=== PATIENT | female | born 1940 | race Caucasian/White ===

== ENCOUNTER 2023-08-13 16:36 | Emergency (ER) | payer MEDICARE, SELFPAY ==
[2023-08-13 16:37] VITALS: BP 160/90
[2023-08-13 16:51] VITALS: BMI 25.4
--- NOTE | 2023-08-13 16:53 | EDRN ---
Pt c/o palpitations, denies chest pain, was seen by her body fitter yesterday for same. Reports hx of palpitations.
--- NOTE | 2023-08-13 16:59 | ED.GENMED ---
History of Present Illness
General
Chief Complaint: Heart Rate Problem
Time Seen by Provider: 08/13/23 16:46
Travel History
Have you had any contact with someone who has COVID-19?: No
Do you have any symptoms of coronavirus? Fever > 100 degrees, chills, cough, shortness of breath, sore throat, loss of taste or smell, muscle aches, or headache?: No
History of Present Illness
History of Present Illness:
HPI: Saw Eileen yesterday and was given Rx for Amio. Intermittent palpitations for years. Says she had a 'normal' Holter early July. She doesn't think she has a formal dx of AFib. Amio not started b/c pharmacist was concerned she is also on
Propranolol. Onset of palpitations last night 6pm. Takes Eliquis 5mg bid for DVT hx. However missed Eliquis dose last night. In rapid AFib now w/ rates 130s to 160s.
EXAM:
GENERAL: Well appearing in no distress
HEENT: Moist oral mucosa
CARDIOVASCULAR: No murmurs, tachycardic with irregular rhythm, No chest wall tenderness
PULMONARY: No respiratory distress, breath sounds are clear and equal
ABDOMEN: Soft with no peritoneal signs, no tenderness
NEUROLOGIC: Excellent strength all extremities, no coordination deficits
PSYCHIATRIC: Appropriate mental status, normal insight and judgement
EXTREMITIES: Nontender, no edema, moves all extremities equally
SKIN: No rash, no lesions
ED COURSE:
5:20 PM: I initially evaluated patient
NUMBER AND COMPLEXITY OF PROBLEMS ADDRESSED AT THE ENCOUNTER
� Chronic conditions affecting care: Hyperlipidemia, diabetes, questionable atrial fibrillation, history of DVT
� Acute Exacerbation and/or Progression of Chronic Illness: This is a recurring problem
� Differential Diagnosis includes: A-fib/a flutter, SVT, electrolyte abnormality, doubt ACS
AMOUNT AND/OR COMPLEXITY OF DATA TO BE REVIEWED AND ANALYZED
� I performed an independent evaluation of and my interpretation is:
EKG: A-fib, ventricular rate of 135
CT:
X-rays:
Laboratory Studies: CBC unremarkable, troponin normal, TSH normal
Other:
� Review of other/old records: Patient had left TKA in 2020
� Clinical information was obtained by an independent historian: Spoke to the daughter at bedside
� Prescriptions/Medications Considered but not given:
� Further testing considered but not performed:
RISK OF COMPLICATIONS AND/OR MORBIDITY OR MORTALITY OF PATIENT MANAGEMENT
� Social determinants of health affecting care: Lives at home
� Discussion with other providers: I discussed with Dr. Stein who agrees it is not safe for electrocardioversion at this time as she missed a dose of Eliquis
� Escalation of care including admission/observation vs risk of discharge considered: The patient's heart rates ranged in the 130s to 160s. She was placed on Cardizem. Considered electrical cardioversion however the patient
missed a dose of Eliquis. I then suggested admission to the hospital to continue on the drip and monitor the heart rate and rhythm. It was also unclear if the patient truly has a diagnosis of A-fib to begin with. However, the patient adamantly
refuses to stay in the hospital wants to go home. After discussion with cardiology, we agreed to stop the Cardizem drip now and give her her dose of amiodarone that she should already be on. She will continue this along with propranolol.
Past History
Past History
ED Past Medical History: Arrthythmia; Negative Asthma, HTN, Hypercholesterolemia or NIDDM
ED Past Surgical History: Appendectomy, Gynecological (Hysterectomy) and Orthopedic
Social History
Tobacco: Non-smoker
Alcohol: None
Drug: None
Personal:
Living: alone
Employment: Employed
Phy Exam
Physical Exam
Physical Exam:
See HPI
Course
Orders/Labs/Results
Orders:
Orders
08/13/23 16:40
Electrocardiogram (*1) Urgent
Reason for Study: Palpitations
EKG- Treatment ONCE
08/13/23 16:59
Complete Blood Count/With Diff Urgent
Comprehensive Metabolic Panel Urgent
Prothrombin Time Urgent
TSH Reflex To Free T4 Urgent
Comment: ADD ON
Troponin I Urgent
08/13/23 17:00
Add On- LAB Urgent
Tests Added?: tsh reflex free t4
08/13/23 17:19
Diltiazem HCl [Cardizem] 10 mg IV NOW STA
08/13/23 17:30
Diltiazem 125 mg/125 ml Nss [Cardizem] 125 mg in 125 ml IV PER PROTOCOL
Initial dose in mg/hr, then titrate:: 10
Titrate to keep:: Heart rate 80-100 bpm
Titrate by mg/hr:: 5 mg/hr
Frequency of titrations (minutes):: 15
Maximum dose in mg/hr:: 15
08/13/23 18:24
Amiodarone [Pacerone] 200 mg PO NOW STA
Abnormal Lab Results
08/13/23
16:59
Absolute Monos (auto) 0.7 H 10^3/uL
(0.1-0.6)
Monocytes % 9.4 H %
(1.7-9.3)
BUN 18 H mg/dl
(7-17)
Creatinine 0.5 L mg/dL
(0.6-1.0)
Glucose 126 H mg/dl
(70-99)
08/13/23 16:59
08/13/23 16:59
Vital Signs
Initial and Last Documented VS:
Initial Vital Signs
Temp Pulse Resp BP Pulse Ox
98.2 F 150 20 160/90 96
08/13/23 16:37 08/13/23 16:37 08/13/23 16:37 08/13/23 16:37 08/13/23 16:37
Last Documented Vital Signs
Temp Pulse Resp BP Pulse Ox
98.2 F 107 23 124/77 96
08/13/23 16:37 08/13/23 18:15 08/13/23 18:15 08/13/23 18:15 08/13/23 16:37
*Critical Care Note
Total Time (30-74mins, 75-104mins- exclusive of procedures): 45 minutes
comment:
The patient's heart rate was as high as the 160s. She was emergently given Cardizem bolus and was placed on a drip for period of time. Her vital signs were very closely monitored. Had multiple discussions with cardiology emergently.
ED Attending Note
-
Portions of this chart may have been created with voice recognition software.� Occasional wrong word or��sound alike� substitutions may have occurred due to the inherent limitations of voice recognition software.
Discharge Plan
Departure
Patient Disposition: Home (Routine Discharge)
Date of Disposition: 08/13/23
Time of Disposition: 18:32
Patient with high blood pressure during this ER visit?: Yes
Discharge Problem:
Atrial fibrillation
Instructions: Atrial Fibrillation (DC)
Prescriptions:
No Action
propranolol 60 MG capsule,extended release 24 hr
60 mg PO DAILY
multivitamin with minerals [Hair,Skin and Nails] 1 EACH tablet
2 ea PO DAILY
famotidine 40 MG tablet
40 mg PO HS
levothyroxine 88 MCG tablet
88 mcg PO DAILY AT 0700
rosuvastatin 5 MG tablet
5 mg PO MOWEFR
cholecalciferol (vitamin D3) 1,000 UNITS tablet
1,000 units PO DAILY
metformin 500 MG tablet
500 mg PO Daily
oxycodone-acetaminophen 5 MG/325 MG tablet
1 tab PO Q6HPRN PRN (Reason: moderate-severe pain) Qty: 45 0RF
Rx Instructions:
1 tab for moderate pain, 1 1/2 tab for severe
dx total joint
ongoing therapy
ibuprofen [Advil Liqui-Gel] 200 MG capsule
2 - 4 tab PO PRN PRN (Reason: PAIN)
propranolol 10 MG tablet
1 - 2 mg PO PRN PRN (Reason: TACHYCARDIA)
magnesium [Magnacaps] 100 MG capsule
100 mg PO DAILY
gabapentin 300 MG capsule
300 mg PO HS
sodium chloride [Federica 128] 1 DROP drops
1 drp BOTH EYES HS
multivitamin with folic acid [Tab-A-Constantin] 1 TABLET tablet
1 tab PO DAILY
apixaban [Eliquis] 5 MG tablet
5 mg PO BID
vit C,J-Xl-ihwwh-lutein-zeaxan [PreserVision AREDS-2] 1 EACH capsule
1 ea PO DAILY
tyepndie-fmwsi-pfbuv-CF borate [Move Free Joint [facility]] 1 EACH tablet
1 ea PO DAILY
Activity Restrictions/Additional Instructions:
I spoke to one of Dr. Arellano's associates, Dr. Stein. Start Amiodarone as directed by Dr. Arellano - next dose in morning. We gave a one-time dose of Cardizem 10 mg and then briefly placed you on a drip. Your blood work came back normal including
cardiac blood work as well as thyroid testing. Return here if worse. Be sure to continue your Eliquis without missing any doses to help prevent a stroke.
Interventions
Interventions:
*Risk Screen - Suicide Last Done: 08/13/23 16:51
*General Assessment Last Done: 08/13/23 16:37
*Neglect/Abuse Screening Last Done: 08/13/23 16:51
*ED COVID-19 Vaccine History Last Done: 08/13/23 16:37
ED- Cardiac Assessment Last Done: 08/13/23 16:52
ED- Pulmonary Assessment Last Done: 08/13/23 16:52
[2023-08-13 17:11] LABS: % Basophils 1.1 % (0-2); % Eosinophils 1.6 % (0-6); % Immature Granulocytes 0.3 % (0-0.5); % Lymphocytes 29.5 % (20.5-51.1); % Monocytes 9.4 % (1.7-9.3); % Neutrophils 58.1 % (42.2-75.2); Absolute Basophils 0.1 10^3/uL (0-0.2); Absolute Eosinophils 0.1 10^3/uL (0-0.7); Absolute Lymphocytes 2.2 10^3/uL (1.2-3.4); Absolute Monocytes 0.7 10^3/uL (0.1-0.6); Absolute Neutrophils 4.4 10^3/uL (1.4-6.5); Hematocrit 42.2 % (37.0-47.0); Hemoglobin 14.9 g/dL (12.0-16.0); Mean Corp Hgb Conc. 35.3 g/dL (33.0-37.0); Mean Corpuscular Hgb 30.5 pg (27.0-31.0); Mean Corpuscular Volume 86.5 fL (81.0-99.0); Mean Platelet Volume 9.9 fL (7.4-10.4); Nucleated Red Blood Cells % 0 %; Platelet Count 285 10^3/uL (130-400); Red Blood Cell Count 4.88 10^6/uL (4.20-5.40); Red Cell Dist. Width 14.3 % (11.5-14.5); White Blood Cell Count 7.5 10^3/uL (4.8-10.8)
[2023-08-13 17:17] LABS: INR 0.99; PT 13.1 Sec (11.4-14.6)
[2023-08-13 17:23] VITALS: BP 137/93
[2023-08-13] MEDS: CARDIZEM 10 MG IV (17:23)
[2023-08-13 17:34] LABS: Troponin I < 0.012 ng/ml
[2023-08-13 17:47] LABS: ALT (SGPT) 25 U/L (0-35); AST (SGOT) 31 U/L (14-36); Alkaline Phosphatase 74 U/L (38-126); Blood Urea Nitrogen 18 mg/dl (7-17); Calcium 9.8 mg/dl (8.4-10.2); Carbon Dioxide 24 mmol/L (22-30); Chloride 100 mmol/L (98-107); Estimated Creatinine Clearance 74 ml/min; Glucose 126 mg/dl (70-99); Potassium 4.6 mmol/L (3.5-5.1); Sodium 135 mmol/L (135-145); Total Bilirubin 0.8 mg/dl (0.2-1.3); Total Protein 6.5 g/dl (6.3-8.2); eGFR > 60.00
[2023-08-13] MEDS: CARDIZEM 125 IV (17:57)
[2023-08-13 18:00] VITALS: BP 127/80
[2023-08-13 18:15] VITALS: BP 124/77
[2023-08-13 18:28] LABS: TSH Reflex To Free T4 2.02 uIU/ml (0.47-4.68)
[2023-08-13] MEDS: PACERONE 200 MG PO (18:28)
== END 2023-08-13 18:44 | disposition home or self-care (01) ==
LOC: EMR 16:36
PROVIDERS: EMERGENCY PHYSICIAN Emergency Medicine; FAMILY PHYSICIAN Internal Medicine
DX: I48.91 Unspecified atrial fibrillation (principal); R00.2 Palpitations
CPT/HCPCS: 99283; 96374; 96376; 80053; 84443; 84484; 85025; 85610; 93005

== ENCOUNTER 2023-08-16 15:46 | Emergency (ER) | payer MEDICARE, SELFPAY ==
[2023-08-16] VITALS (16 sets, daily range): BP systolic 100–149; BP diastolic 62–105
--- NOTE | 2023-08-16 16:42 | ED.GENMED ---
History of Present Illness
General
Chief Complaint: Heart Rate Problem
Source: patient, records and family
Exam Limitations: none
Time Seen by Provider: 08/16/23 16:28
Nursing documentation reviewed up to this point in time: agreed with
Travel History
Have you had any contact with someone who has COVID-19?: No
Do you have any symptoms of coronavirus? Fever > 100 degrees, chills, cough, shortness of breath, sore throat, loss of taste or smell, muscle aches, or headache?: No
History of Present Illness
History of Present Illness:
Patient is a 83-year-old female who presents to the emergency department complaining of her heart racing. Patient was seen here 3 days ago and had missed a dose of her Eliquis the day before and was found to be atrial flutter. At that time was
decided not to cardiovert her. Patient is taking amiodarone. Patient feels lightheaded and weak but denies chest pain or shortness of breath. Patient denies any GI or symptoms. Patient denies fever or chills, nasal congestion, sore throat or
cough. Patient denies any leg pain or swelling. Patient has been in atrial fibrillation and atrial flutter in the past.
Past History
Past History
ED Past Medical History: Arrthythmia; Negative Asthma, HTN, Hypercholesterolemia or NIDDM
ED Past Surgical History: Appendectomy, Gynecological (Hysterectomy) and Orthopedic
Social History
Tobacco: Non-smoker
Alcohol: None
Drug: None
Personal:
Living: alone
Employment: Employed
Review of Systems
Review of Systems
All Other Systems: ROS reviewed and negative except as documented in HPI and ROS
Constitutional: Reports fatigue; Denies fever or chills
EENT: Reports no symptoms
Respiratory: Reports no symptoms
Cardiac: Reports palpitations; Denies chest pain, diaphoresis or syncope
ABD/GI: Reports no symptoms
: Reports no symptoms
Musculoskeletal: Reports no symptoms
Skin: Reports no symptoms
Neurological: Reports no symptoms
Hematologic/Lymphatic: Reports no symptoms
Psychiatric: Reports no symptoms
Phy Exam
Physical Exam
Physical Exam:
Physical Exam
General: mild distress, alert and appropriate, well nourished, well hydrated
HENT: Normocephalic, supple with no lymphadenopathy, no thyromegaly
Eyes: Clear sclera, conjuctiva without injection
Heart: irregular irregular rhythm and tachycardic rate. No S3, S4. No murmur. No NVD
Lungs: No respiratory distress, no stridor, lung sounds clear and equal bilaterally
Abdomen: Soft, nontender, BS good
Neuro: Alert and oriented x 3, CN II - XII intact, no motor focality
Skin: no rash
Psychiatric: well kept. interactive and cooperative
Extremities: No edema, cyanosis, tenderness
Scores
Heart Failure Risk
Heart Failure Risk Score: Not Applicable
Heart Score for Chest Pain Patients
STEMI patient?: Not applicable
Withdrawal Assessment of Alcohol
Withdrawal Assessment Completed?: Not applicable
Course
Orders/Labs/Results
Orders:
Orders
08/16/23 15:52
EKG [Electrocardiogram (*1)] Stat
Reason for Study: Tachycardia
EKG- Treatment ONCE
Vital Signs
Initial and Last Documented VS:
Initial Vital Signs
Temp Pulse Resp BP Pulse Ox
97.9 F 128 20 147/90 98
08/16/23 15:48 08/16/23 15:48 08/16/23 15:48 08/16/23 15:48 08/16/23 15:48
Last Documented Vital Signs
Temp Pulse Resp BP Pulse Ox
97.8 F 62 25 124/67 96
08/16/23 18:00 08/16/23 18:41 08/16/23 18:41 08/16/23 18:41 02/04/24 18:41
Procedures
Cardioversion
Indication:: Afib
Performed by:: leticia
Synchronized?: Yes
Energy Used: Other (100)
Number of attempts: 1
Successful?: Yes
Complications: prolonged sedation
ASA Risk Score: Class II
Any reaction or bad outcome to prior sedation/anesthesia?: Pt has had a reaction (vomiting)
Sedation level to be attained: deep
Chart and allergies reviewed: Yes
Patient reassessed prior to sedation: Yes
Time out completed at (validating right patient & procedure): 17:15
History of difficult intubation: No
Airway free of obstruction: Yes
Patient has a gag reflex: Yes
Patient is able to open mouth: Yes
Patient has no dentures: Yes
Patient has no loose teeth: Yes
Medication administered by Provider during Moderate Sedation: IV Propofol (mg)
Total dose administered: 50
Time drug administered: 17:15
Start Time: 17:15
Stop Time: 17:30
*Radiology
Radiology exam reviewed: other (na)
*Pulse Oximetry
Patient hypoxic: no
*EKG
Interpreted by ED Provider?: Yes
EKG Intrepretation Date: 08/16/23
EKG Intrepretation Time: 21:42
Interpretation: abnormal
Comparison EKG: changes noted
Heart Rate: 113
Rate: tachycardiac
Rhythm: a-fib
[place]: normal axis
Interval: normal QT interval
QRS Pattern: poor R-wave progression
Ischemia: non-specific ST changes
*Video Game Designer Interpretation
Rate: tachycardiac
Interpretation: abnormal
Heart Rate: 130
Rhythm: a-fib
*Critical Care Note
Total Time (30-74mins, 75-104mins- exclusive of procedures): Not Applicable
Update Note
Update Note:
I reviewed the labs from 3 days ago and they were unremarkable. Patient underwent cardioversion successfully. Repeat EKG showed normal sinus rhythm at 60 and no acute changes.
ED Attending Note
-
Portions of this chart may have been created with voice recognition software.� Occasional wrong word or��sound alike� substitutions may have occurred due to the inherent limitations of voice recognition software.
Discharge Plan
Departure
Patient Disposition: Home (Routine Discharge)
Date of Disposition: 08/16/23
Time of Disposition: 17:59
Patient with high blood pressure during this ER visit?: Yes
Condition: Good
Discharge Problem:
Atrial fibrillation with rapid ventricular response, Encounter for cardioversion procedure
Instructions: Atrial Fibrillation (DC), Cardioversion (DC), MODERATE SEDATION ADULT, BLOOD PRESSURE
Prescriptions:
No Action
propranolol 60 MG capsule,extended release 24 hr
60 mg PO DAILY
multivitamin with minerals [Hair,Skin and Nails] 1 EACH tablet
2 ea PO DAILY
famotidine 40 MG tablet
40 mg PO HS
levothyroxine 88 MCG tablet
88 mcg PO DAILY AT 0700
rosuvastatin 5 MG tablet
5 mg PO MOWEFR
cholecalciferol (vitamin D3) 1,000 UNITS tablet
1,000 units PO DAILY
metformin 500 MG tablet
500 mg PO Daily
oxycodone-acetaminophen 5 MG/325 MG tablet
1 tab PO Q6HPRN PRN (Reason: moderate-severe pain) Qty: 45 0RF
Rx Instructions:
1 tab for moderate pain, 1 1/2 tab for severe
dx total joint
ongoing therapy
ibuprofen [Advil Liqui-Gel] 200 MG capsule
2 - 4 tab PO PRN PRN (Reason: PAIN)
propranolol 10 MG tablet
1 - 2 mg PO PRN PRN (Reason: TACHYCARDIA)
magnesium [Magnacaps] 100 MG capsule
100 mg PO DAILY
gabapentin 300 MG capsule
300 mg PO HS
sodium chloride [Federica 128] 1 DROP drops
1 drp BOTH EYES HS
multivitamin with folic acid [Tab-A-Constantin] 1 TABLET tablet
1 tab PO DAILY
apixaban [Eliquis] 5 MG tablet
5 mg PO BID
vit C,Z-Rs-zaxsi-lutein-zeaxan [PreserVision AREDS-2] 1 EACH capsule
1 ea PO DAILY
whpossha-wbqim-zuayv-CF borate [Move Free Joint [facility]] 1 EACH tablet
1 ea PO DAILY
Referrals:
NONE,* [Active] -
Activity Restrictions/Additional Instructions:
Follow-up with your satin finisher. Continue present medications and therapy.
Interventions
Interventions:
*Risk Screen - Suicide Last Done: 08/16/23 16:27
*General Assessment Last Done: 08/16/23 15:48
*Neglect/Abuse Screening Last Done: 08/16/23 16:27
ED- Fall Risk Assessment Last Done: 08/16/23 16:27
*ED COVID-19 Vaccine History Last Done: 08/16/23 15:48
*Nursing Disposition Last Done: 08/16/23 18:51
ED- Cardiac Assessment Last Done: 08/16/23 16:27
ED- Pulmonary Assessment Last Done: 08/16/23 16:27
Discharge Date and Time
Discharge Date/Time: 08/16/23 18:52
== END 2023-08-16 18:52 | disposition home or self-care (01) ==
LOC: EMR 15:46
PROVIDERS: EMERGENCY PHYSICIAN Emergency Medicine
DX: I48.91 Unspecified atrial fibrillation (principal); Z79.01 Long term (current) use of anticoagulants; Z90.49 Acquired absence of other specified parts of digestive tract; Z90.710 Acquired absence of both cervix and uterus
CPT/HCPCS: 99283; 92960; 93005

== ENCOUNTER → 2023-09-09 09:11 | Outpatient (REF) | payer MEDICARE, SELFPAY | LOC: DHCBS HW 09:11 | PROVIDERS: ATTENDING PHYSICIAN Nuclear Medicine Nuclear Cardiology; FAMILY PHYSICIAN Family Medicine | DX: I48.0 Paroxysmal atrial fibrillation (principal); R00.2 Palpitations | CPT/HCPCS: 93306 ==

== ENCOUNTER → 2024-08-04 10:05 | Outpatient (REF) | payer MEDICARE, SELFPAY | LOC: WDC 10:05 | PROVIDERS: ATTENDING PHYSICIAN Family Medicine | DX: N63.20 Unspecified lump in the left breast, unspecified quadrant (principal); N63.21 Unspecified lump in the left breast, upper outer quadrant | CPT/HCPCS: 76642; 77062; 77066 ==

== ENCOUNTER → 2024-09-19 08:12 | Outpatient (REF) | payer MEDICARE, SELFPAY ==
--- NOTE | 2024-09-19 13:25 | OID.BR.INTR ---
[facility] Navigator - Initial
- -
Date of Contact: 09/19/24
Met with patient. Patient given written information on navigator service available at [facility]. Will follow up as needed per protocol.
== END ==
LOC: WDC 08:12
PROVIDERS: ATTENDING PHYSICIAN Family Medicine
DX: N63.21 Unspecified lump in the left breast, upper outer quadrant (principal)
CPT/HCPCS: 88305; 19083; 88341; 88342; 88360; A4648

== ENCOUNTER → 2024-09-27 13:44 | Outpatient (REF) | payer MEDICARE, SELFPAY | LOC: WDC 13:44 | PROVIDERS: ATTENDING PHYSICIAN Surgery; FAMILY PHYSICIAN Family Medicine | DX: N63.32 Unspecified lump in axillary tail of the left breast (principal); R22.32 Localized swelling, mass and lump, left upper limb | CPT/HCPCS: 76642 ==

== ENCOUNTER 2024-10-18 18:30 | Inpatient (IN) | payer MEDICARE, SELFPAY ==
[2024-10-18 12:58] VITALS: BP 150/60
[2024-10-18 13:19] LABS: % Basophils 0.6 % (0-2); % Eosinophils 0.7 % (0-6); % Immature Granulocytes 0.5 % (0-0.5); % Lymphocytes 13.2 % (20.5-51.1); % Monocytes 10.6 % (1.7-9.3); % Neutrophils 74.4 % (42.2-75.2); Absolute Basophils 0.1 10^3/uL (0-0.2); Absolute Eosinophils 0.1 10^3/uL (0-0.7); Absolute Immature Granulocytes 0.1 10^3/uL (0-0.05); Absolute Lymphocytes 1.4 10^3/uL (1.2-3.4); Absolute Monocytes 1.1 10^3/uL (0.1-0.6); Absolute Neutrophils 7.7 10^3/uL (1.4-6.5); Hematocrit 35.3 % (37.0-47.0); Hemoglobin 12.1 g/dL (12.0-16.0); Mean Corp Hgb Conc. 34.3 g/dL (33.0-37.0); Mean Corpuscular Hgb 30.4 pg (27.0-31.0); Mean Corpuscular Volume 88.7 fL (81.0-99.0); Nucleated Red Blood Cells % 0 %; Platelet Count 283 10^3/uL (130-400); Red Blood Cell Count 3.98 10^6/uL (4.20-5.40); Red Cell Dist. Width 14.5 % (11.5-14.5); White Blood Cell Count 10.3 10^3/uL (4.8-10.8)
[2024-10-18 13:41] LABS: ALT (SGPT) 38 U/L (0-35); AST (SGOT) 31 U/L (14-36); Albumin 3.4 g/dl (3.5-5.0); Alkaline Phosphatase 106 U/L (38-126); Blood Urea Nitrogen 18 mg/dl (7-17); Calcium 9.4 mg/dl (8.4-10.2); Carbon Dioxide 28 mmol/L (22-30); Chloride 103 mmol/L (98-107); Glucose 171 mg/dl (70-99); Lipase 55 U/L (23-300); Sodium 139 mmol/L (135-145); Total Bilirubin 0.7 mg/dl (0.2-1.3); Total Protein 5.8 g/dl (6.3-8.2); eGFR > 60.00
--- NOTE | 2024-10-18 16:07 | ED.GENMED ---
History of Present Illness
General
Chief Complaint: Abdominal Pain
Source: patient and family
Exam Limitations: none
Time Seen by Provider: 10/18/24 15:44
Nursing documentation reviewed up to this point in time: agreed with
History of Present Illness
History of Present Illness:
84-year-old female with a past medical history of atrial fibrillation on Eliquis, hyperlipidemia, diabetes, hypothyroidism, breast cancer who presents to the emergency department with her daughter for evaluation of abdominal pain. Patient reports
onset of symptoms Thursday and have been constant since that time. She reports pain across the lower abdomen. No clear triggering factors noted. She said she did take a Percocet leftover from an old prescription last night and it did help her pain
significantly. She has had some loose stools associated with it. Denies any nausea or vomiting. Denies any dysuria, hematuria, change in frequency. She denies any fevers or chills. She denies any other complaints. She reports new diagnosis of
breast cancer recently but is currently in the process of evaluating prior to starting treatment�not currently on chemotherapy or radiation. She has prior surgical history of appendectomy, cholecystectomy, hysterectomy.
Past History
Past History
ED Past Medical History: Arrthythmia; Negative Asthma, HTN, Hypercholesterolemia or NIDDM
ED Past Surgical History: Appendectomy, Gynecological (Hysterectomy) and Orthopedic
Social History
Tobacco: Non-smoker
Alcohol: None
Drug: None
Personal:
Living: alone
Employment: Employed
Review of Systems
Review of Systems
All Other Systems: ROS reviewed and negative except as documented in HPI and ROS
Constitutional: Denies fever or chills
Respiratory: Denies trouble breathing
Cardiac: Denies chest pain
ABD/GI: Reports abdominal pain and diarrhea; Denies nausea or vomiting
: Denies dysuria, frequency or flank pain
Musculoskeletal: Denies neck pain or back pain
Neurological: Denies dizzy or headache
Phy Exam
Physical Exam
Physical Exam:
General: Awake, alert, oriented x3; no acute distress
Head: Normocephalic, atraumatic
Eyes: Conjunctiva normal, sclera anicteric
Throat: Airway intact, handling secretions
Neck: Trachea midline, supple without meningismus
Lungs: Clear to auscultation bilaterally, no wheezing, rales, rhonchi
Heart: Regular rate and rhythm, no murmurs, gallops, or rubs
Abd: Soft, non distended, tender to palpation across lower abdomen with no palpable masses
Back: No CVA tenderness
Neuro: No gross deficits
Skin: no rash in area of concern
Extremities: Warm and well-perfused
Scores
Heart Failure Risk
Heart Failure Risk Score: Not Applicable
Heart Score for Chest Pain Patients
STEMI patient?: Not applicable
Withdrawal Assessment of Alcohol
Withdrawal Assessment Completed?: Not applicable
Course
Orders/Labs/Results
Orders:
Orders
10/18/24 13:11
Complete Blood Count/With Diff Urgent
Comprehensive Metabolic Panel Urgent
Lipase Urgent
10/18/24 15:46
CT Abd/pelvis W Iv Cont Urgent
Comment:
Reason For Exam: lower abd pain
10/18/24 16:06
Lorazepam [Ativan] 0.5 mg IV NOW STA
10/18/24 16:42
Lorazepam [Ativan] 0.5 mg IV NOW STA
10/18/24 17:34
Morphine Sulfate 4 mg IV NOW STA
Zosyn 3.375 grams IVPB NOW Piperacillin/Tazo 3.375 Gram [Zosyn] 3.375 gram in 50 ml IV NOW
Abnormal Lab Results
10/18/24
13:11
RBC 3.98 L 10^6/uL
(4.20-5.40)
Hct 35.3 L %
(37.0-47.0)
Abs Immat Gran (auto) 0.1 H 10^3/uL
(0-0.05)
Absolute Neuts (auto) 7.7 H 10^3/uL
(1.4-6.5)
Absolute Monos (auto) 1.1 H 10^3/uL
(0.1-0.6)
Lymphocytes % 13.2 L %
(20.5-51.1)
Monocytes % 10.6 H %
(1.7-9.3)
BUN 18 H mg/dl
(7-17)
Glucose 171 H mg/dl
(70-99)
ALT 38 H U/L
(0-35)
Total Protein 5.8 L g/dl
(6.3-8.2)
Albumin 3.4 L g/dl
(3.5-5.0)
10/18/24 13:11
10/18/24 13:11
Vital Signs
Initial and Last Documented VS:
Initial Vital Signs
Temp Pulse Resp BP Pulse Ox
36.9 C 64 20 150/60 95
10/18/24 12:58 10/18/24 12:58 10/18/24 12:58 10/18/24 12:58 10/18/24 12:58
Last Documented Vital Signs
Temp Pulse Resp BP Pulse Ox
36.9 C 64 20 149/87 97
10/18/24 12:58 10/18/24 12:58 10/18/24 12:58 10/18/24 16:15 10/18/24 16:15
MDM/Problems Addressed
Differential Diagnosis Includes:
Diverticulitis, nephrolithiasis, metastatic cancer
MDM/Problems Addressed:
84-year-old female presents for evaluation of lower abdominal pain as described above. Vitals and exam as above. She says she had a urinalysis today in PCPs office that was reportedly normal. Will plan to place an IV check labs including a CBC
and a CMP. Will check CT of the abdomen pelvis. Patient requesting a dose of Ativan prior to CT as she says she gets very anxious and claustrophobic with imaging. Reassess after the above.
Labs reviewed: CBC shows no clinically significant abnormalities. CMP no clinical significant abnormalities. Radiology called back CT of the abdomen pelvis: Positive for severe acute diverticulitis with abscess formation. Plan to treat with IV
antibiotics admit for continued management. Case discussed with hospitalist.
*Radiology
Radiology exam reviewed: radiology read reviewed
*Pulse Oximetry
Patient hypoxic: no
*Critical Care Note
Total Time (30-74mins, 75-104mins- exclusive of procedures): Not Applicable
Data Reviewed
Review of Other/Old Records Reveals: Labs and Records
Source: patient and family
Patient Management
Discussion with other providers: Hospitalist (Discussed with hospitalist)
Escalation/DeEscalation of care consider admission/obs:
Admission indicated
ED Attending Note
-
Portions of this chart may have been created with voice recognition software.� Occasional wrong word or��sound alike� substitutions may have occurred due to the inherent limitations of voice recognition software.
Discharge Plan
Departure
Patient Disposition: Admit
Date of Disposition: 10/18/24
Time of Disposition: 17:37
Admit to doctor: Veronica
Presentation/result/management discussed w/ accepting MD/DO: Hospitalist
Discharge Problem:
Acute diverticulitis
Prescriptions:
No Action
propranolol 60 MG capsule,extended release 24 hr
60 mg PO DAILY
multivitamin with minerals [Hair,Skin and Nails] 1 EACH tablet
2 ea PO DAILY
famotidine 40 MG tablet
40 mg PO HS
levothyroxine 88 MCG tablet
88 mcg PO DAILY AT 0700
rosuvastatin 5 MG tablet
5 mg PO MOWEFR
cholecalciferol (vitamin D3) 1,000 UNITS tablet
1,000 units PO DAILY
metformin 500 MG tablet
500 mg PO Daily
oxycodone-acetaminophen 5 MG/325 MG tablet
1 tab PO Q6HPRN PRN (Reason: moderate-severe pain) Qty: 45 0RF
Rx Instructions:
1 tab for moderate pain, 1 1/2 tab for severe
dx total joint
ongoing therapy
ibuprofen [Advil Liqui-Gel] 200 MG capsule
2 - 4 tab PO PRN PRN (Reason: PAIN)
propranolol 10 MG tablet
1 - 2 mg PO PRN PRN (Reason: TACHYCARDIA)
magnesium [Magnacaps] 100 MG capsule
100 mg PO DAILY
gabapentin 300 MG capsule
300 mg PO HS
sodium chloride [Federica 128] 1 DROP drops
1 drp BOTH EYES HS
multivitamin with folic acid [Tab-A-Constantin] 1 TABLET tablet
1 tab PO DAILY
apixaban [Eliquis] 5 MG tablet
5 mg PO BID
vit C,W-By-byolf-lutein-zeaxan [PreserVision AREDS-2] 1 EACH capsule
1 ea PO DAILY
fesvrvks-hzquo-dunzx-CF borate [Move [facility]] 1 EACH tablet
1 ea PO DAILY
Referrals:
UNKNOWN - PT DOES,NOT KNOW [Unknown Provider] -
Interventions
Interventions:
*Risk Screen - Suicide Last Done: 10/18/24 12:58
*General Assessment Last Done: 10/18/24 12:58
*Neglect/Abuse Screening Last Done: 10/18/24 16:14
*ED- Fall Risk Assessment Last Done: 10/18/24 16:14
*ED COVID-19 Vaccine History Last Done: 10/18/24 16:14
YC-Wfrown-Qmgseesjrr Assessment Last Done: 10/18/24 16:14
Discharge Date and Time
Print Language: GREEK
[2024-10-18 16:13] VITALS: BMI 22.3
[2024-10-18 16:15] VITALS: BP 149/87
[2024-10-18] MEDS: ATIVAN 0.5 MG IV ×2 (16:21→16:49)
--- NOTE | 2024-10-18 17:41 | HPS.HSE ---
Family Physician
-
Family Physician: Mahin Romero Jr.
Chief Complaint
-
abd pain
History of Present Illness
84 y/o F, hx of recently diagnosed with breast cancer, Afib on Eliquis, HLD, type 2 DM, hypothyroidism presents to ER for abdominal pain. Pain began Skyler and have remained persistently. Pain is located across lower abdomen. Some nausea, no
vomiting. Some loose stools. No fevers/chills. No known triggers. Took some old Percocet which helped with symptoms. No other complaints.
in ER, CT found diverticulitis with abscess and patient admitted for IV abx.
Medical History
Past Medical History
Past Medical History: Reports Other (breast cancer, Afib on Eliquis, HLD, type 2 DM, hypothyroidism)
Past Surgical History: Reports Other (Appendectomy, Gynecological (Hysterectomy) and Orthopedic)
Social History
Tobacco: Non-smoker
Alcohol: None
Drug: None
Personal:
Living: Alone
Employment: Employed
Family History
Family History: Not pertinent
Allergies / Home Medications
Allergies reflects when Allergies were last updated in [facility].
Home Medications with original date entered in [facility]
Allergy/Medication List:
Allergies
Allergy/AdvReac Type Severity Reaction Status Date / Time
chocolate flavor Allergy THROAT Verified 10/18/24 12:59
SWELLING
codeine Allergy Rash,Nausea Verified 10/18/24 12:59
environmental allergies Allergy throat Uncoded 10/18/24 12:59
closes
Home Medications
multivitamin with minerals (Hair,Skin and Nails tablet) 2 ea PO DAILY Supplement 07/16/16
propranolol 60 mg capsule,24 hr,extended release 60 mg PO DAILY Blood pressure 07/16/16
cholecalciferol (vitamin D3) 25 mcg (1,000 unit) tablet 1,000 units PO DAILY Supplement 11/13/20
famotidine 40 mg tablet 40 mg PO HS Gastrointestinal issue 11/13/20
levothyroxine 88 mcg tablet 88 mcg PO DAILY AT 0700 Thyroid 11/13/20
rosuvastatin 5 mg tablet 5 mg PO MOWEFR High cholesterol 11/13/20
metformin 500 mg tablet 500 mg PO Daily Diabetes 11/26/20
oxycodone-acetaminophen 5 mg-325 mg tablet 1 tab PO Q6HPRN PRN moderate-severe pain #45 tabs 12/14/20
apixaban 5 mg tablet (Eliquis) 5 mg PO BID 08/23/21
gabapentin 300 mg capsule 300 mg PO HS 08/23/21
glucosam 750 mg-chondroi 100 mg-hyalur 1.65 mg-CF borate 108 mg tablet (Move Free Job1001) 1 ea PO DAILY 08/23/21
ibuprofen 200 mg capsule (Advil Liqui-Gel) 2 - 4 tab PO PRN PRN PAIN 08/23/21
magnesium 100 mg capsule (Magnacaps) 100 mg PO DAILY 08/23/21
multivitamin with folic acid 400 mcg tablet (Tab-A-Constantin) 1 tab PO DAILY 08/23/21
propranolol 10 mg tablet 1 - 2 mg PO PRN PRN TACHYCARDIA 08/23/21
sodium chloride 2 % eye drops (Federica 128) 1 drp BOTH EYES HS 08/23/21
vit C 250 mg-vit E 90 mg-zinc 40 mg-copper 1 [id number]-cutuqa capsule (PreserVision AREDS-2) 1 ea PO DAILY 08/23/21
Review of Systems
-
A 12 point ROS was completed and negative except as noted: Yes
Physical Exam
Vital Signs
Vital Signs
Temp Pulse Resp BP Pulse Ox
98.5 F 64 20 149/87 97
10/18/24 12:58 10/18/24 12:58 10/18/24 12:58 10/18/24 16:15 10/18/24 16:15
Physical Exam
General: Appears in Distress (tearful); No Pain
HEENT: NormoCephalic and Anicteric
Respiratory: Clear; No Wheezes
Cardiac: S1/S2 and Regular Rhythm
GI: Non Distended and Tender
Neuro: AO x 3
Psych: Calm
Laboratory Results
-
10/18/24 13:11
10/18/24 13:11
Laboratory Results
Total Bilirubin 0.7 mg/dl (0.2-1.3) 10/18/24 13:11
AST 31 U/L (14-36) 10/18/24 13:11
ALT 38 U/L (0-35) H 10/18/24 13:11
Alkaline Phosphatase 106 U/L (38-126) 10/18/24 13:11
Lipase 55 U/L (23-300) 10/18/24 13:11
Data Reviewed
-
Lab Data: Labs Reviewed by me
Impression/Plan
-
Assessment:
Acute diverticulitis with abscess
- CT: Severe wall thickening and inflammatory change throughout the proximal to mid sigmoid colon. Adjacent pericolonic abscess along the posteroinferior margin of the mid sigmoid colon measuring 3.0 x 3.5 x 3.9 cm. The bowel is without evidence of
obstruction or perforation. Moderate to severe diffuse colonic stool burden.
- NPO (ok for ice chips, meds)
- IVF
- IV Zosyn
- supportive care with pain control and anti-emetics
- CRS consulted; recommended IR consult for drainage. d/w IR.
Recently diagnosed breast cancer
- reported stage 2
- ongoing outpatient diagnostics with PET scans
- follows with [facility]
- recent diagnosis
Parox Afib
- hold Eliquis for possible IR intervention
- continue Propranolol for rate control
HLD - hold statin
Type 2 DM
- hold Metformin
- SSI
- Accu-checks
- A1c
Hypothyroidism
- continue replacement
DVT ppx: SCDs
Code: Full
[2024-10-18] MEDS: MORPHINE SULFATE 4 MG IV (17:50)
[2024-10-18] MEDS: ZOSYN 50 IV ×2 (17:52→23:50)
[2024-10-18 19:00] VITALS: BP 138/66
[2024-10-18 20:00] VITALS: BP 123/54
[2024-10-18 20:02] VITALS: BMI 22.6
--- NOTE | 2024-10-18 20:25 | PTCARENOTE ---
Pt arrived to unit from ED via stretcher. Patient ambulated from stretcher to bed. A&Ox3. Oriented to unit. Call light within reach. Care ongoing.
[2024-10-18 20:30] VITALS: BP 140/64; BMI 22.6
[2024-10-18] MEDS: LR 1000 IV (21:01)
[2024-10-18] MEDS: NEURONTIN 300 MG PO (21:04)
[2024-10-18] MEDS: PEPCID 40 MG PO (21:05)
[2024-10-18] MEDS: MURO-128/ADSORBONAC 2% EYE DROPS 1 DROP BOTH EYES (22:13)
[2024-10-18 23:06] VITALS: BP 128/55
[2024-10-18 23:59] LABS: Glucose - Point of Care 97 mg/dl (70-99)
[2024-10-19 03:35] VITALS: BP 125/46
[2024-10-19] MEDS: ZOSYN 50 IV ×4 (05:25→23:58)
[2024-10-19] MEDS: MORPHINE SULFATE 2 MG IV ×2 (05:26→09:46)
[2024-10-19] MEDS: SYNTHROID 88 MCG PO (05:29)
[2024-10-19 05:40] LABS: Hematocrit 31.4 % (37.0-47.0); Hemoglobin 10.7 g/dL (12.0-16.0); Mean Corp Hgb Conc. 34.1 g/dL (33.0-37.0); Mean Corpuscular Hgb 30.1 pg (27.0-31.0); Mean Corpuscular Volume 88.5 fL (81.0-99.0); Platelet Count 226 10^3/uL (130-400); Red Blood Cell Count 3.55 10^6/uL (4.20-5.40); Red Cell Dist. Width 14.6 % (11.5-14.5)
[2024-10-19 05:43] LABS: Glucose - Point of Care 94 mg/dl (70-99)
[2024-10-19 05:59] LABS: Blood Urea Nitrogen 12 mg/dl (7-17); Calcium 8.8 mg/dl (8.4-10.2); Carbon Dioxide 28 mmol/L (22-30); Chloride 104 mmol/L (98-107); Estimated Creatinine Clearance 73 ml/min; Glucose 97 mg/dl (70-99); Potassium 3.7 mmol/L (3.5-5.1); Sodium 139 mmol/L (135-145); eGFR > 60.00
[2024-10-19 07:15] VITALS: BP 123/58
[2024-10-19 08:00] VITALS: BMI 22.6
[2024-10-19] MEDS: PACERONE 200 MG PO (08:56)
[2024-10-19 09:19] LABS: Glycohemoglobin (HgbA1c) 6.2 % (4.0-5.6)
--- NOTE | 2024-10-19 10:11 | CON.CRS ---
Consultation
-
Date/Time Consultation Requested: 10/18/2024, 17: 40
Date/Time Consultation Performed: 10/19/2024, 8:30 AM
Requesting Provider: Dr. Marcial Alvarado
Performing Provider: Dr. Rm Pyle
Reason for Consultation: diverticulitis
Medical History
-
Chief Complaint: Abdominal pain
History of Present Illness:
84-year-old female presents to [facility] complaining of abdominal pain. The pain started about 5 days ago and it waxed and waned in nature. She took a Percocet 3 days ago which relieved the pain but then she woke up the next
morning in the same amount of pain as she was prior. She went to her primary care's office yesterday morning and due to the amount of pain she was sent to the ER. Currently she denies any nausea or vomiting. She denies chest pain. Her last bowel
movement was yesterday morning and was loose in nature. Normally her bowels are regular. She has never had a colonoscopy. Denies a family history of rectal or colon cancer.
She was diagnosed with breast cancer 1 month ago and has seen an oncologist at [place]. She is scheduled to start an H 2 positive immunotherapy with chemotherapy for about 6 sessions followed by a lumpectomy. This has not started yet. She has not
yet received her port as her appointment for this was last Thursday. She is currently on Eliquis and her last dose was yesterday morning.
In the ER her WBC was 10.3 and is 9.0 this morning. Her Tmax was 99.0. Vitals are normal. CT of the abdomen pelvis shows severe acute sigmoid diverticulitis with a mid sigmoid colon abscess measuring 3.0 x 3.5 x 3.9 cm. There is no evidence of
obstruction or perforation. Given these findings, we have been consulted for further surgical opinion.
Past Medical History
Past Medical History: Other (Breast cancer, atrial fibrillation on Eliquis, hyperlipidemia, type 2 diabetes, hypothyroidism)
Past Surgical History: Other (Bilateral hand surgery, bilateral shoulder surgery, right foot surgery, appendectomy, cholecystectomy, hysterectomy)
Social History
Tobacco: Non-Smoker
Alcohol: None
Drug: None
Family History
Family History: Reviewed & Not Pertinent
Allergies / Home Medications
Allergy/AdvReac Type Severity Reaction Status Date / Time
chocolate flavor Allergy THROAT Verified 10/18/24 12:59
SWELLING
codeine Allergy Rash,Nausea Verified 10/18/24 12:59
environmental allergies Allergy throat Uncoded 10/18/24 12:59
closes
�Medication �Instructions �Recorded �Confirmed �Type
multivitamin with minerals 3 ea PO DAILY Supplement 07/16/16 10/18/24 History
(Hair,Skin and Nails tablet)
cholecalciferol (vitamin D3) 25 1,000 units PO DAILY Supplement 11/13/20 10/18/24 History
mcg (1,000 unit) tablet
famotidine 40 mg tablet 40 mg PO HS Gastrointestinal issue 11/13/20 10/18/24 History
rosuvastatin 5 mg tablet 5 mg PO MOWEFR High cholesterol 11/13/20 10/18/24 History
apixaban 5 mg tablet (Eliquis) 5 mg PO BID 08/23/21 10/18/24 History
gabapentin 300 mg capsule 300 mg PO HS 08/23/21 10/18/24 History
ibuprofen 200 mg capsule (Advil 400 mg PO Q6HPRN PRN mild pain 08/23/21 10/18/24 History
Liqui-Gel)
vit C 250 mg-vit E 90 mg-zinc 40 1 ea PO DAILY 08/23/21 10/18/24 History
mg-copper 1 [id number]
capsule (PreserVision AREDS-2)
amiodarone 200 mg tablet 200 mg PO DAILY 10/18/24 10/18/24 History
glucosamine [id number] 1 tab PO DAILY 10/18/24 10/18/24 History
nadine 1,500 mg-400 unit-100 mg
tablet (Osteo Bi-Flex (5-Loxin))
latanoprost 0.005 % eye drops 1 drp RIGHT EYE HS 10/18/24 10/18/24 History
levothyroxine 100 mcg tablet 100 mcg PO DAILY 10/18/24 10/18/24 History
magnesium oxide 200 mg PO DAILY 10/18/24 10/18/24 History
oxycodone-acetaminophen 5 mg-325 1 tab PO Q8HPRN PRN 10/18/24 10/18/24 History
mg tablet moderate-severe pain
propranolol 80 mg capsule,24 80 mg PO HS 10/18/24 10/18/24 History
hr,extended release
therapeutic multivitamin 1 tab PO DAILY 10/18/24 10/18/24 History
Review of Systems
-
History Source: Patient
Abdomen/GI: Abdominal Pain and Diarrhea
A 10 point review of systems was completed, and was negative except as per HPI.
Physical Exam
Vital Signs
Temp 99.0 F 10/19/24 07:15
Pulse 60 10/19/24 07:15
Resp Rate 16 10/19/24 07:15
Blood pressure 123/58 10/19/24 07:15
SaO2 95 10/19/24 08:00
10/18/24 10/19/24 10/20/24
06:59 06:59 06:59
Actual Weight 67.358 kg
Body Mass Index (BMI) 22.6
Lab Results / Allergies
10/19/24 05:23
10/19/24 05:23
WBC 9.0 10^3/uL (4.8-10.8) 10/19/24 05:23
Hgb 10.7 g/dL (12.0-16.0) L 10/19/24 05:23
Hct 31.4 % (37.0-47.0) L 10/19/24 05:23
Plt Count 226 10^3/uL (130-400) D 10/19/24 05:23
Abs Immat Gran (auto) 0.1 10^3/uL (0-0.05) H 10/18/24 13:11
Neutrophils % 74.4 % (42.2-75.2) 10/18/24 13:11
Allergy/AdvReac Type Severity Reaction Status Date / Time
chocolate flavor Allergy THROAT Verified 10/18/24 12:59
SWELLING
codeine Allergy Rash,Nausea Verified 10/18/24 12:59
environmental allergies Allergy throat Uncoded 10/18/24 12:59
closes
Physical Exam
General: Well Developed, Well Nourished and No Apparent Distress
GI: Soft, Tender (Bilateral mild to moderate pain, more prominent in the left lower quadrant) and Distended (Mild)
Skin: Warm and Dry
Neuro: AO x 3
Psych: Calm
Data Reviewed
-
CT Scan: Image Personally Visualized and interpreted, Report Reviewed by me and Discussed with Patient
Labs: Labs Reviewed by me, Discussed with Physician and Discussed with Patient
Old Records: Reviewed
Assessment / Plan
-
Assessment: 84-year-old female with a recent diagnosis of breast cancer and atrial fibrillation on Eliquis, presents with 5 days of abdominal pain and found to have sigmoid diverticulitis with an associated sigmoid abscess
Plan:
- Continue to trend labs and vitals
- IR consulted for drain into abscess, however, given his location they are unable to place it. I discussed this with Dr. Fernandez this morning.
- Continue n.p.o. with IV fluids
- Continue IV antibiotics
- Hold Eliquis
- Will need an eventual colonoscopy in 6 to 8 weeks once this has resolved
- We discussed colectomy with colostomy creation if she worsens. The patient is very much against this idea at this time. We assured her we will maximize all medical management prior to surgery.
[2024-10-19] MEDS: LR 1000 IV (10:37)
[2024-10-19 11:12] VITALS: BP 108/56
[2024-10-19 11:43] LABS: Glucose - Point of Care 93 mg/dl (70-99)
--- NOTE | 2024-10-19 11:45 | W.PN.HOSP.TC ---
Today's Communication/Plan
-
IR unable to safely place drain
will continue IV abx
keep NPO; IVF
follow Colorectal recs
Assessment / Plan
Assessment / Plan
Assessment:
Acute diverticulitis with abscess
- CT: Severe wall thickening and inflammatory change throughout the proximal to mid sigmoid colon. Adjacent pericolonic abscess along the posteroinferior margin of the mid sigmoid colon measuring 3.0 x 3.5 x 3.9 cm. The bowel is without evidence of
obstruction or perforation. Moderate to severe diffuse colonic stool burden.
- NPO (ok for ice chips, meds) - diet per CRS
- continue IVF
- IV Zosyn, day 2
- supportive care with pain control and anti-emetics
- CRS consulted; recommended IR consult for drainage. d/w IR and no safe path to pursue/place drain.
Recently diagnosed breast cancer
- reported stage 2
- ongoing outpatient diagnostics with PET scans
- follows with [facility]
- recent diagnosis
Parox Afib
- hold Eliquis for any possible intervention
- continue Propranolol for rate control
HLD - hold statin
Type 2 DM
- hold Metformin
- SSI
- Accu-checks
- A1c: 6.2%
Hypothyroidism
- continue replacement
DVT ppx: SCDs
Code: Full
Anticipated Discharge: > 48 hours
Subjective/Interval History
-
Date of Service: October 19, 2024
pain more controlled
denies nausea/vomiting
Objective Data
-
Labs:
Laboratory Results
10/19/24
05:23
WBC 9.0
Hgb 10.7 L
Hct 31.4 L
Plt Count 226 D
Sodium 139
Potassium 3.7
Chloride 104
Carbon Dioxide 28
BUN 12
Creatinine 0.6
Glucose 97
Calcium 8.8
Vital Signs:
Vital Signs
Temp Pulse Resp BP Pulse Ox
99.7 F 57 18 108/56 95
10/19/24 11:12 10/19/24 11:12 10/19/24 11:12 10/19/24 11:12 10/19/24 11:12
Physical Exam
-
General: No Apparent Distress
HEENT: Normocephalic and Atraumatic
Respiratory: Negative Wheezes
Cardiac: Regular Rhythm and S1/S2
GI: Tender
Genito-urinary: No Costovertebral Tender
Neuro: AO x 3
Hematologic / Lymphatic: No Lymphadenopathy
Psych: Calm
Data Reviewed
-
Total Time Spent with Patient (in minutes): 44
Labs: Labs Reviewed by me
[2024-10-19] MEDS: TYLENOL 650 MG PO (15:23)
[2024-10-19 15:27] VITALS: BP 120/46
--- NOTE | 2024-10-19 16:04 | CM ---
Alert awake oriented patient who lives alone in a 2 stroy home with 3 steps to enter and lives on first floor.She is independent in driving and in all activities of daily living.Offered VN she declined.
No adaptive devices
VN hx/SNF
Pharmacy [facility]
PCP Dr Romero
PLAN Home no anticipated needs
[2024-10-19 18:02] LABS: Glucose - Point of Care 86 mg/dl (70-99)
[2024-10-19 19:00] VITALS: BP 134/50
[2024-10-19] MEDS: NEURONTIN 300 MG PO (21:04)
[2024-10-19] MEDS: INDERAL LA 80 MG PO (21:05)
[2024-10-19] MEDS: MURO-128/ADSORBONAC 2% EYE DROPS 1 DROP BOTH EYES (21:05)
[2024-10-19] MEDS: XALATAN OPHTHALMIC SOLUTION 1 DROP RIGHT EYE (21:05)
[2024-10-19] MEDS: PEPCID 40 MG PO (21:05)
[2024-10-19 23:00] VITALS: BP 139/58
[2024-10-19 23:53] LABS: Glucose - Point of Care 66 mg/dl (70-99)
[2024-10-20 00:19] LABS: Glucose - Point of Care 94 mg/dl (70-99)
[2024-10-20] MEDS: LR 1000 IV ×2 (02:19→15:42)
[2024-10-20] MEDS: MELATONIN 5 MG PO (02:19)
[2024-10-20 02:24] LABS: Glucose - Point of Care 79 mg/dl (70-99)
[2024-10-20] MEDS: TYLENOL 650 MG PO (02:24)
[2024-10-20 03:00] VITALS: BP 118/49
[2024-10-20] MEDS: ZOSYN 50 IV ×4 (05:36→23:17)
[2024-10-20] MEDS: SYNTHROID 100 MCG PO (05:36)
[2024-10-20 05:39] LABS: Glucose - Point of Care 80 mg/dl (70-99)
--- NOTE | 2024-10-20 05:56 | PTCARENOTE ---
Pt very tearful, crying with difficulty sleeping. Pt reports chronic LE neuropathy pain, and generalized body discomfort. House [employer] notified, 5mg melatonin ordered and administered along with PRN Tylenol. Pt reports taking 10mg Melatonin along with
4 Advil at bedtime at home. Pt finally able to get some sleep post medication administration. Pt slightly hypoglycemic overnight, hypoglycemic protocol maintained. IVF infusing as ordered. Pt ambulatory to bathroom with assistance as needed. Pt
denies any abd pain, some tenderness to palpation and some small loose stools. HR in the 50's SB on the monitor while sleepin, HR in the 60's in NSR while awake. Emotional support provided. Will continue to monitor.
[2024-10-20 06:34] LABS: Hematocrit 30.4 % (37.0-47.0); Hemoglobin 10.3 g/dL (12.0-16.0); Mean Corp Hgb Conc. 33.9 g/dL (33.0-37.0); Mean Corpuscular Hgb 29.9 pg (27.0-31.0); Mean Corpuscular Volume 88.1 fL (81.0-99.0); Platelet Count 223 10^3/uL (130-400); Red Blood Cell Count 3.45 10^6/uL (4.20-5.40); Red Cell Dist. Width 14.6 % (11.5-14.5); White Blood Cell Count 9.5 10^3/uL (4.8-10.8)
[2024-10-20 06:51] LABS: Blood Urea Nitrogen 11 mg/dl (7-17); Calcium 8.7 mg/dl (8.4-10.2); Carbon Dioxide 27 mmol/L (22-30); Chloride 102 mmol/L (98-107); Estimated Creatinine Clearance 73 ml/min; Glucose 75 mg/dl (70-99); Potassium 3.4 mmol/L (3.5-5.1); Sodium 139 mmol/L (135-145); eGFR > 60.00
[2024-10-20 07:27] VITALS: BP 126/59
--- NOTE | 2024-10-20 08:08 | W.PN.CRS1 ---
Today's Communication / Plan
-
clears
Assessment/Plan
-
Assessment: 84-year-old female with a recent diagnosis of breast cancer and atrial fibrillation on Eliquis, presents with 5 days of abdominal pain and found to have sigmoid diverticulitis with an associated sigmoid abscess
WBC 9.5 (9.0), tmax 100.2, vitals normal
Plan:
- Continue to trend labs and vitals
- Advance to clear liquids
- IR unable to place drain due to location (10/19)
- Continue n.p.o. with IV fluids
- Continue IV antibiotics
- Hold Eliquis
- Will need an eventual colonoscopy in 6 to 8 weeks once this has resolved
- We discussed colectomy with colostomy creation if she worsens. The patient is very much against this idea at this time. We assured her we will maximize all medical management prior to surgery.
Subjective Data
Subjective Data
Date of Service: October 20, 2024
Patient states that she has the same abdominal pain but it is less frequent in nature. She denies nausea or vomiting. She had loose stools. She is very thirsty.
Objective Data
-
Vital Signs
Temp Pulse Resp BP Pulse Ox
98.8 F 54 16 126/59 97
10/20/24 07:27 10/20/24 07:27 10/20/24 07:27 10/20/24 07:27 10/20/24 07:27
Intake & Output
10/19/24 10/20/24 10/21/24
06:59 06:59 06:59
Intake Total 1100 / 1100
Balance 1100 / 1100
Intake:
Oral fluids 120 / 120
IV fluids (Total) 880 / 880
IV piggybacks 100 / 100
Other:
Number of approximated MODERATE 3 1
amounts of urine
Number of approximated LARGE 4
amounts of urine
Number of unmeasured liquid
stools
Rectum 1
Lab Results
10/20/24 05:13
10/20/24 05:13
Physical Exam
-
General: No Acute Distress and AOx3
Abdomen: Soft, Non Distended and Tender (LLQ/suprapubic - mild/mod (improving))
Skin: Warm
[2024-10-20] MEDS: PACERONE 200 MG PO (09:09)
--- NOTE | 2024-10-20 10:36 | W.PN.HOSP.TC ---
Addendum entered and electronically signed by Christiano Ceja MD 10/20/24 11:28:
K for hypokalemia
Original Note:
Today's Communication/Plan
-
clears
pain control, anti-emetics
IV Abx
follow CRS recs
Onc consult
Assessment / Plan
Assessment / Plan
Assessment:
Acute diverticulitis with abscess
- CT: Severe wall thickening and inflammatory change throughout the proximal to mid sigmoid colon. Adjacent pericolonic abscess along the posteroinferior margin of the mid sigmoid colon measuring 3.0 x 3.5 x 3.9 cm. The bowel is without evidence of
obstruction or perforation. Moderate to severe diffuse colonic stool burden.
- diet: clears
- continue IVF
- IV Zosyn, day 3
- supportive care with pain control and anti-emetics
- CRS consulted; recommended IR consult for drainage. d/w IR and no safe path to pursue/place drain. Medical management vs surgery (with ostomy) being discussed. Patient at present refuses surgery.
Recently diagnosed breast cancer
- reported stage 2
- ongoing outpatient diagnostics with PET scans
- follows with [facility]
- Onc consult here to discuss risks of potential delay of oncological treatment if medical management of acute diverticulitis pursued vs more urgent surgical intervention.
Parox Afib
- hold Eliquis for any possible intervention
- continue Propranolol for rate control
HLD - hold statin
Type 2 DM
- hold Metformin
- SSI
- Accu-checks
- A1c: 6.2%
Hypothyroidism
- continue replacement
DVT ppx: SCDs
Code: Full
Anticipated Discharge: > 48 hours
Subjective/Interval History
-
Date of Service: October 20, 2024
vomiting x 1 with PO potassium pill
some associated nausea
no other complaints
Objective Data
-
Labs:
Laboratory Results
10/20/24
05:13
WBC 9.5
Hgb 10.3 L
Hct 30.4 L
Plt Count 223
Sodium 139
Potassium 3.4 L
Chloride 102
Carbon Dioxide 27
BUN 11
Creatinine 0.6
Glucose 75
Calcium 8.7
Vital Signs:
Vital Signs
Temp Pulse Resp BP Pulse Ox
98.8 F 54 16 126/59 97
10/20/24 07:27 10/20/24 09:09 10/20/24 07:27 10/20/24 09:09 10/20/24 07:27
I&O
10/19/24 10/20/24 10/21/24
06:59 06:59 06:59
Intake Total 1100 / 1100
Balance 1100 / 1100
Physical Exam
-
General: No Apparent Distress
HEENT: Normocephalic and Atraumatic
Cardiac: Regular Rhythm and S1/S2
GI: Tender
Neuro: AO x 3
Psych: Calm
Data Reviewed
-
Total Time Spent with Patient (in minutes): 45
Labs: Labs Reviewed by me
[2024-10-20] MEDS: KCL ELIXIR 40 MEQ PO (11:10)
[2024-10-20 11:52] LABS: Glucose - Point of Care 143 mg/dl (70-99)
[2024-10-20] MEDS: MORPHINE SULFATE 2 MG IV ×3 (12:02→22:01)
--- NOTE | 2024-10-20 12:21 | CON.ONC ---
Impression
Impression
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
Diverticulitis
Atrial fibrillation
Diabetes mellitus
Hypothyroidism
Plan
Plan
Patient has plans to receive systemic chemotherapy as adjuvant treatment for breast cancer
She has a planned echocardiogram evaluation suspect that her regimen is TCHP as this would typically be standard
Have shared with her data that suggest delays in systemic therapy longer than 6 weeks have been associated with worsening outcomes in breast cancer
She is unfazed and wishes to pursue conservative management
Will sign off
Patient History
History of Present Illness
84 y/o F, hx of recently diagnosed with breast cancer, Afib on Eliquis, HLD, type 2 DM, hypothyroidism presents to ER for abdominal pain. Pain is located across lower abdomen with CT findings consistent with acute exacerbation of diverticulitis.
She has been seen by colorectal surgery who has suggested a possible more expedited recovery may be offered by surgical resection followed by antibiotics. She has deferred this recommendation. We have been been consulted to comment on the
potential impact of delay in systemic adjuvant chemotherapy after recent diagnosis of node positive stage II HER2 positive breast carcinoma. She is currently following with physicians at the [facility] for this diagnosis and when
asked to share my consultation with those physician she deferred. Her responses were somewhat jonny possibly exacerbated by the redundancy and her discomfort. She continues to have chronic cramping diarrhea. No fevers/chills.
Past-Medical/Surgical History
Past Medical History
Past Medical History: breast cancer, Afib on Eliquis, HLD, type 2 DM, hypothyroidism
Past Surgical History: Appendectomy, Gynecological (Hysterectomy) and Orthopedic
Social History
Tobacco: Non-smoker
Alcohol: None
Drug: None
Personal:
Living: Alone
Employment: Employed
Family History
Family History: Not pertinent
Patient Medication
�Medication �Instructions �Recorded �Confirmed �Last Taken �Type
multivitamin with minerals 3 ea PO DAILY Supplement 01/10/2710/18/24 10/18/24 History
(Hair,Skin and Nails tablet)
cholecalciferol (vitamin D3) 25 1,000 units PO DAILY Supplement 11/13/20 10/18/24 10/18/24 History
mcg (1,000 unit) tablet
famotidine 40 mg tablet 40 mg PO HS Gastrointestinal issue 11/13/20 10/18/24 10/17/24 History
rosuvastatin 5 mg tablet 5 mg PO MOWEFR High cholesterol 11/13/20 10/18/24 10/17/24 History
apixaban 5 mg tablet (Eliquis) 5 mg PO BID Blood Clot 08/23/21 10/18/24 10/18/24 History
Prevention/Tx
gabapentin 300 mg capsule 300 mg PO HS Pain 08/23/21 10/18/24 10/17/24 History
ibuprofen 200 mg capsule (Advil 400 mg PO Q6HPRN PRN mild pain 08/23/21 10/18/24 08/27/21 04:00 History
Liqui-Gel)
vit C 250 mg-vit E 90 mg-zinc 40 1 ea PO DAILY Supplement 08/23/21 10/18/24 10/18/24 History
mg-copper 1 [id number]
capsule (PreserVision AREDS-2)
amiodarone 200 mg tablet 200 mg PO DAILY Arrhythmia 10/18/24 10/18/24 10/18/24 History
glucosamine [id number] 1 tab PO DAILY Supplement 10/18/24 10/18/24 10/18/24 History
nadine 1,500 mg-400 unit-100 mg
tablet (Osteo Bi-Flex (5-Loxin))
latanoprost 0.005 % eye drops 1 drp RIGHT EYE HS Eye Condition 10/18/24 10/18/24 10/17/24 History
levothyroxine 100 mcg tablet 100 mcg PO DAILY Thyroid 10/18/24 10/18/24 10/18/24 History
magnesium oxide 200 mg PO DAILY Supplement 10/18/24 10/18/24 10/18/24 History
oxycodone-acetaminophen 5 mg-325 1 tab PO Q8HPRN PRN 10/18/24 10/18/24 Unknown History
mg tablet moderate-severe pain
propranolol 80 mg capsule,24 80 mg PO HS Heart Disease/Condition 10/18/24 10/18/24 10/17/24 History
hr,extended release
therapeutic multivitamin 1 tab PO DAILY Supplement 10/18/24 10/18/24 10/18/24 History
melatonin 10 mg PO HS Sleep 10/20/24 10/20/24 10/17/24 History
Active Medications
Generic Name Dose Route Start Last Admin
Trade Name Freq PRN Reason Stop Dose Admin
Acetaminophen 650 mg 10/18/24 20:33 10/20/24 02:24
Acetaminophen 325 Mg Tablet PO 11/15/24 20:32 650 mg
Q4HPRN PRN Administration
mild pain/TRAVIS/temp> 100.4F
Amiodarone HCl 200 mg 10/19/24 09:00 10/20/24 09:09
Amiodarone 200 Mg Tablet PO 11/16/24 08:59 200 mg
DAILY RAMSES Administration
Dextrose 12.5 grams 10/18/24 20:33
Dextrose 50% (0.5 Grams/Ml) 50 Ml Syringe IV 11/15/24 20:32
[id number] PRN
hypoglycemia
Protocol
Enoxaparin Sodium 40 mg 10/20/24 18:00
Enoxaparin Sodium 40 Mg/0.4 Ml Syringe SC 11/17/24 17:59
QPM RAMSES
Famotidine 40 mg 10/18/24 22:00 10/19/24 21:05
Famotidine 40 Mg Tablet PO 11/15/24 21:59 40 mg
HS RAMSES Administration
Gabapentin 300 mg 10/18/24 22:00 10/19/24 21:04
Gabapentin 300 Mg Capsule PO 11/15/24 21:59 300 mg
HS RAMSES Administration
Glucagon 1 mg 10/18/24 20:33
Glucagon 1 Mg Vial IM 11/15/24 20:32
PRN PRN
hypoglycemia
Protocol
Piperacillin Sod/Tazobactam Sod 3.375 gram in 50 mls @ 100 mls/hr 10/19/24 00:00 10/20/24 12:03
Zosyn IV 50 mls
Q6H RAMSES Administration
Lactated Ringer's 1,000 mls @ 80 mls/hr 10/20/24 03:00 10/20/24 02:19
Lr IV 1,000 mls
.[id number] RAMSES Administration
Insulin Aspart 0 units 10/19/24 00:00 10/20/24 05:38
Insulin Aspart Low Resistance 300 Units/3 Ml Pen.Injctr SC 11/16/24 00:00 Not Given
Q6 RAMSES
Protocol
Latanoprost 1 drop 10/19/24 22:00 10/19/24 21:05
Latanoprost 0.005% (Ophthalmic Solution) 2.5 Ml Bottle RIGHT EYE 11/16/24 21:59 1 drop
HS RAMSES Administration
Levothyroxine Sodium 100 mcg 10/20/24 06:00 10/20/24 05:36
Levothyroxine 100 Mcg Tablet PO 11/17/24 05:59 100 mcg
DAILY@0600 RAMSES Administration
Melatonin 10 mg 10/20/24 22:00
Melatonin 5 Mg Tablet PO 11/17/24 21:59
HS RAMSES
Morphine Sulfate 2 mg 10/18/24 20:33 10/20/24 12:02
Morphine 2 Mg/Ml Syringe IV 11/01/24 20:32 2 mg
Q4HPRN PRN Administration
severe pain
Ondansetron HCl 4 mg 10/18/24 20:33
Ondansetron 4 Mg/2 Ml Vial IV 11/15/24 20:32
Q6HPRN PRN
nausea and vomiting
Propranolol HCl 80 mg 10/19/24 22:00 10/19/24 21:05
Propranolol Extended Release 80 Mg Capsule (24hr) PO 11/16/24 21:59 80 mg
HS RAMSES Administration
Sodium Chloride 1 drop 10/18/24 22:00 10/19/24 21:05
Sodium Chloride 2% (Ophthalmic Solution) 15 Ml Bottle BOTH EYES 11/15/24 21:59 1 drop
HS RAMSES Administration
Sodium Chloride 0 flush 10/18/24 21:00
Sodium Chloride 0.9% (Flush) Syringe IV 11/15/24 20:59
PER PROTOCOL RAMSES
Review of Systems
-
Noncontributory other than those complaints noted in the HPI
Physical Exam
-
Physical exam limited at patient's request
No scleral icterus
Heart regular
Lungs clear
No asymmetry lower extremities
Labs
Lab Results
WBC 9.5 10^3/uL (4.8-10.8) 10/20/24 05:13
RBC 3.45 10^6/uL (4.20-5.40) L 10/20/24 05:13
Hgb 10.3 g/dL (12.0-16.0) L 10/20/24 05:13
Hct 30.4 % (37.0-47.0) L 10/20/24 05:13
MCV 88.1 fL (81.0-99.0) 10/20/24 05:13
MCH 29.9 pg (27.0-31.0) 10/20/24 05:13
MCHC 33.9 g/dL (33.0-37.0) 10/20/24 05:13
RDW 14.6 % (11.5-14.5) H 10/20/24 05:13
Plt Count 223 10^3/uL (130-400) 10/20/24 05:13
MPV 10.0 fL (7.4-10.4) 10/20/24 05:13
Abs Immat Gran (auto) 0.1 10^3/uL (0-0.05) H 10/18/24 13:11
Absolute Neuts (auto) 7.7 10^3/uL (1.4-6.5) H 10/18/24 13:11
Absolute Lymphs (auto) 1.4 10^3/uL (1.2-3.4) 10/18/24 13:11
Absolute Monos (auto) 1.1 10^3/uL (0.1-0.6) H 10/18/24 13:11
Absolute Eos (auto) 0.1 10^3/uL (0-0.7) 10/18/24 13:11
Absolute Basos (auto) 0.1 10^3/uL (0-0.2) 10/18/24 13:11
Immature Gran % 0.5 % (0-0.5) 10/18/24 13:11
Neutrophils % 74.4 % (42.2-75.2) 10/18/24 13:11
Lymphocytes % 13.2 % (20.5-51.1) L 10/18/24 13:11
Monocytes % 10.6 % (1.7-9.3) H 10/18/24 13:11
Eosinophils % 0.7 % (0-6) 10/18/24 13:11
Basophils % 0.6 % (0-2) 10/18/24 13:11
Creatinine 0.6 mg/dL (0.6-1.0) 10/20/24 05:13
Vital Signs
Vital Signs
Temp Pulse Resp BP Pulse Ox
98.8 F 54 16 126/59 97
10/20/24 07:27 10/20/24 09:09 10/20/24 07:27 10/20/24 09:09 10/20/24 07:27
--- NOTE | 2024-10-20 14:03 | PTCARENOTE ---
Assumed care of pt from previous nurse. pt with some pain to abdomen, managed with prn medication. Pt diet advanced, tolerating without issue. Pt call machado is within reach, pt rings sheyla. will cont to monitor.
[2024-10-20 15:19] VITALS: BP 140/61
[2024-10-20 17:47] LABS: Glucose - Point of Care 97 mg/dl (70-99)
[2024-10-20] MEDS: LOVENOX 40 MG SC (18:55)
[2024-10-20 21:36] LABS: Glucose - Point of Care 110 mg/dl (70-99)
[2024-10-20] MEDS: XALATAN OPHTHALMIC SOLUTION 1 DROP RIGHT EYE (21:58)
[2024-10-20] MEDS: MURO-128/ADSORBONAC 2% EYE DROPS BOTH EYES (21:59)
[2024-10-20] MEDS: NEURONTIN 300 MG PO (22:00)
[2024-10-20] MEDS: INDERAL LA 80 MG PO (22:00)
[2024-10-20] MEDS: MELATONIN 10 MG PO (22:00)
[2024-10-20] MEDS: PEPCID 40 MG PO (22:00)
[2024-10-20 23:00] VITALS: BP 128/55
[2024-10-21] MEDS: MORPHINE SULFATE 2 MG IV ×4 (04:44→18:30)
[2024-10-21] MEDS: ZOSYN 50 IV ×4 (05:01→23:56)
[2024-10-21] MEDS: SYNTHROID 100 MCG PO (05:01)
[2024-10-21 05:59] LABS: Hemoglobin 10.1 g/dL (12.0-16.0); Mean Corp Hgb Conc. 33.7 g/dL (33.0-37.0); Mean Corpuscular Hgb 29.4 pg (27.0-31.0); Mean Corpuscular Volume 87.5 fL (81.0-99.0); Mean Platelet Volume 10.1 fL (7.4-10.4); Platelet Count 243 10^3/uL (130-400); Red Blood Cell Count 3.43 10^6/uL (4.20-5.40); Red Cell Dist. Width 14.6 % (11.5-14.5); White Blood Cell Count 7.5 10^3/uL (4.8-10.8)
[2024-10-21 06:22] LABS: Blood Urea Nitrogen 9 mg/dl (7-17); Calcium 8.5 mg/dl (8.4-10.2); Carbon Dioxide 28 mmol/L (22-30); Chloride 103 mmol/L (98-107); Estimated Creatinine Clearance 73 ml/min; Glucose 119 mg/dl (70-99); Potassium 3.6 mmol/L (3.5-5.1); Sodium 139 mmol/L (135-145); eGFR > 60.00
[2024-10-21 07:25] VITALS: BP 106/50
[2024-10-21 07:39] LABS: Glucose - Point of Care 124 mg/dl (70-99)
[2024-10-21 08:40] VITALS: BMI 22.6
[2024-10-21] MEDS: PACERONE 200 MG PO (08:58)
[2024-10-21] MEDS: NOVOLOG FLEXPEN-LOW RESISTANCE SC ×2 (08:58→11:57)
[2024-10-21] MEDS: LR 1000 IV (09:08)
[2024-10-21 11:35] LABS: Glucose - Point of Care 118 mg/dl (70-99)
--- NOTE | 2024-10-21 12:24 | W.PN.CRS1 ---
Today's Communication / Plan
-
Full liquids
IV antibiotics
Assessment/Plan
-
Assessment: 84-year-old female with a recent diagnosis of breast cancer and atrial fibrillation on Eliquis, presents with 5 days of abdominal pain and found to have sigmoid diverticulitis with an associated sigmoid abscess
WBC 7.5 (9.3), tmax 100.0, vitals normal
Plan:
- Continue to trend labs and vitals
- Advance to full liquids with Ensure
- IR unable to place drain due to location (10/19)
- Continue n.p.o. with IV fluids
- Continue IV antibiotics
- Hold Eliquis
- Will need an eventual colonoscopy in 6 to 8 weeks once this has resolved
- We discussed colectomy with colostomy creation if she worsens. The patient is very much against this idea at this time. We assured her we will maximize all medical management prior to surgery.
- I updated her daughter, Vianney, via phone and answered all questions
- Reimaging at some point in the future
Subjective Data
Subjective Data
Date of Service: October 21, 2024
Patient states she feels 'drained'. She is very hungry. She has abdominal pain but is improved. She has loose stools.
Objective Data
-
Vital Signs
Temp Pulse Resp BP Pulse Ox
97.6 F 47 14 106/50 95
10/21/24 07:25 10/21/24 08:58 10/21/24 07:25 10/21/24 08:58 10/21/24 07:25
Intake & Output
10/20/24 10/21/24 10/22/24
06:59 06:59 06:59
Intake Total 1100 / 1100 2450 / 2450
Balance 1100 / 1100 2450 / 2450
Intake:
Oral fluids 120 / 120 2400 / 2400
IV fluids (Total) 880 / 880
IV piggybacks 100 / 100 50 / 50
Other:
Number of approximated MODERATE 1 3
amounts of urine
Number of approximated LARGE 4
amounts of urine
Number of unmeasured liquid
stools
Rectum 1 5
Lab Results
10/21/24 05:13
10/21/24 05:13
Physical Exam
-
General: No Acute Distress and AOx3
Abdomen: Soft, Non Distended and Tender (Mild left lower quadrant, improved)
Skin: Warm and Dry
--- NOTE | 2024-10-21 13:04 | W.PN.HOSP.TC ---
Today's Communication/Plan
-
continue full liquids
continue IV abx
follow CRS recs
Assessment / Plan
Assessment / Plan
Assessment:
Acute diverticulitis with abscess
- CT: Severe wall thickening and inflammatory change throughout the proximal to mid sigmoid colon. Adjacent pericolonic abscess along the posteroinferior margin of the mid sigmoid colon measuring 3.0 x 3.5 x 3.9 cm. The bowel is without evidence of
obstruction or perforation. Moderate to severe diffuse colonic stool burden.
- diet: full liquids
- IV Zosyn, day 4
- supportive care with pain control and anti-emetics
- CRS consulted; recommended IR consult for drainage. d/w IR and no safe path to pursue/place drain. Medical management vs surgery (with ostomy) being discussed. Patient at present refuses surgery and wants to mamize medical therapy.
Recently diagnosed breast cancer
- reported stage 2
- ongoing outpatient diagnostics with PET scans
- follows with [facility]
- Onc consult appreciated
Parox Afib
- hold Eliquis for any possible intervention
- continue Propranolol for rate control
HLD - hold statin
Type 2 DM
- hold Metformin
- SSI
- Accu-checks
- A1c: 6.2%
Hypothyroidism
- continue replacement
DVT ppx: SCDs
Code: Full
Anticipated Discharge: > 48 hours
Subjective/Interval History
-
Date of Service: October 21, 2024
hungry
abd pain improving
some loose stools
Objective Data
-
Labs:
Laboratory Results
10/21/24
05:13
WBC 7.5
Hgb 10.1 L
Hct 30.0 L
Plt Count 243
Sodium 139
Potassium 3.6
Chloride 103
Carbon Dioxide 28
BUN 9
Creatinine 0.6
Glucose 119 H
Calcium 8.5
Vital Signs:
Vital Signs
Temp Pulse Resp BP Pulse Ox
97.6 F 47 14 106/50 95
10/21/24 07:25 10/21/24 08:58 10/21/24 07:25 10/21/24 08:58 10/21/24 07:25
I&O
10/20/24 10/21/24 10/22/24
06:59 06:59 06:59
Intake Total 1100 / 1100 2450 / 2450
Balance 1100 / 1100 2450 / 2450
Physical Exam
-
General: No Apparent Distress
HEENT: Normocephalic and Atraumatic
Cardiac: Regular Rhythm and S1/S2
GI: Other (mild left lower quadrant, pain improved)
Genito-urinary: No Costovertebral Tender
Neuro: AO x 3
Psych: Calm
Data Reviewed
-
Total Time Spent with Patient (in minutes): 42
Labs: Labs Reviewed by me
[2024-10-21 15:08] VITALS: BP 106/52
--- NOTE | 2024-10-21 16:33 | CM ---
Chart reviewed and plan is to home when stable, no needs.
Plan; Home no needs when stable.
[2024-10-21 16:38] LABS: Glucose - Point of Care 159 mg/dl (70-99)
[2024-10-21] MEDS: NOVOLOG FLEXPEN-LOW RESISTANCE 1 UNITS SC (17:46)
[2024-10-21] MEDS: LOVENOX 40 MG SC (18:30)
[2024-10-21] MEDS: MURO-128/ADSORBONAC 2% EYE DROPS BOTH EYES (21:33)
[2024-10-21 21:55] LABS: Glucose - Point of Care 183 mg/dl (70-99)
[2024-10-21] MEDS: NEURONTIN 300 MG PO (22:49)
[2024-10-21] MEDS: INDERAL LA 80 MG PO (22:49)
[2024-10-21] MEDS: MELATONIN 10 MG PO (22:50)
[2024-10-21] MEDS: XALATAN OPHTHALMIC SOLUTION 1 DROP RIGHT EYE (22:51)
[2024-10-21] MEDS: DILAUDID 0.5 MG IV (22:53)
[2024-10-21] MEDS: PEPCID 40 MG PO (22:53)
[2024-10-21 23:00] VITALS: BP 104/58
[2024-10-22] MEDS: ZOSYN 50 IV ×2 (06:18→11:40)
[2024-10-22] MEDS: SYNTHROID 100 MCG PO (06:18)
[2024-10-22 06:38] LABS: Hematocrit 30.5 % (37.0-47.0); Hemoglobin 10.3 g/dL (12.0-16.0); Mean Corp Hgb Conc. 33.8 g/dL (33.0-37.0); Mean Corpuscular Hgb 29.9 pg (27.0-31.0); Mean Corpuscular Volume 88.7 fL (81.0-99.0); Platelet Count 264 10^3/uL (130-400); Red Blood Cell Count 3.44 10^6/uL (4.20-5.40); Red Cell Dist. Width 14.6 % (11.5-14.5); White Blood Cell Count 5.9 10^3/uL (4.8-10.8)
[2024-10-22 06:54] LABS: Blood Urea Nitrogen 8 mg/dl (7-17); Calcium 8.7 mg/dl (8.4-10.2); Carbon Dioxide 34 mmol/L (22-30); Chloride 105 mmol/L (98-107); Estimated Creatinine Clearance 73 ml/min; Glucose 110 mg/dl (70-99); Sodium 142 mmol/L (135-145); eGFR > 60.00
[2024-10-22 07:00] VITALS: BP 105/51
[2024-10-22 08:05] LABS: Glucose - Point of Care 127 mg/dl (70-99)
[2024-10-22] MEDS: NOVOLOG FLEXPEN-LOW RESISTANCE SC ×2 (08:47→18:03)
[2024-10-22 09:00] VITALS: BP 126/67
--- NOTE | 2024-10-22 09:43 | W.PN.CRS1 ---
Today's Communication / Plan
-
Advance diet
ID eval
Assessment/Plan
-
Assessment: 84-year-old female with a recent diagnosis of breast cancer and atrial fibrillation on Eliquis, presents with 5 days of abdominal pain and found to have sigmoid diverticulitis with an associated sigmoid abscess
AFVSS
No leukocytosis, CRP elevated but now trending down
IR unable to place drain due to location (10/19)
Plan:
- Continue to trend labs and vitals
- Advance to Low residue
- Continue IV antibiotics. Consult placed to ID for ABX determination prior to discharge
- Hold Eliquis
- Will need an eventual colonoscopy in 6 to 8 weeks once this has resolved
- Colectomy with colostomy creation if she worsens, but does seem to be improving without surgical intervention.
- Reimaging at some point in the future
Subjective Data
Subjective Data
Date of Service: October 22, 2024
Patient seen and examined at bedside with Dr. Mobley. Denies n/v. Tolerating diet thus far without increased pain. Notes that she had a rough afternoon yesterday but feeling much better today. Denies n/v. Passed a BM yesterday. Passing flatus.
Objective Data
-
Vital Signs
Temp Pulse Resp BP Pulse Ox
97.8 F 49 16 126/67 93
10/22/24 07:00 10/22/24 09:00 10/22/24 07:00 10/22/24 09:00 10/22/24 07:00
Intake & Output
10/21/24 10/22/24 10/23/24
06:59 06:59 06:59
Intake Total 2450 / 2450 960 / 960 1060 / 1060
Balance 2450 / 2450 960 / 960 1060 / 1060
Intake:
Oral fluids 2400 / 2400 960 / 960 960 / 960
IV piggybacks 50 / 50 100 / 100
Other:
Number of approximated MODERATE 3 5 2
amounts of urine
Number of unmeasured liquid
stools
Rectum 5 1
Lab Results
10/22/24 06:10
10/22/24 06:10
Physical Exam
-
General: No Acute Distress and AOx3
Abdomen: Soft, Non Distended and Tender (Mild left lower quadrant)
Skin: Warm and Dry
[2024-10-22] MEDS: PACERONE 200 MG PO (11:02)
[2024-10-22] MEDS: DILAUDID 0.5 MG IV ×2 (11:40→21:05)
--- NOTE | 2024-10-22 12:28 | W.PN.HOSP.TC ---
Today's Communication/Plan
-
LRD
ID consult
Assessment / Plan
Assessment / Plan
Assessment:
Acute diverticulitis with abscess
- CT: Severe wall thickening and inflammatory change throughout the proximal to mid sigmoid colon. Adjacent pericolonic abscess along the posteroinferior margin of the mid sigmoid colon measuring 3.0 x 3.5 x 3.9 cm. The bowel is without evidence of
obstruction or perforation. Moderate to severe diffuse colonic stool burden.
- diet: LRD
- IV Zosyn, day 5. ID consulted for antibiotic duration/possible home IV antibiotics
- supportive care with pain control and anti-emetics
- CRS consulted; recommended IR consult for drainage. d/w IR and no safe path to pursue/place drain. Medical management vs surgery (with ostomy) being discussed. Patient at present refuses surgery and wants to maximize medical therapy.
Recently diagnosed breast cancer
- reported stage 2
- ongoing outpatient diagnostics with PET scans
- follows with [facility]
- Onc consult appreciated
Parox Afib
- hold Eliquis for any possible intervention
- continue Propranolol for rate control
HLD - hold statin
Type 2 DM
- hold Metformin
- SSI
- Accu-checks
- A1c: 6.2%
Hypothyroidism
- continue replacement
DVT ppx: SCDs
Code: Full
Anticipated Discharge: > 48 hours
Subjective/Interval History
-
Date of Service: October 22, 2024
pain manageable
no fevers/normal WBC
started on LRD
Objective Data
-
Labs:
Laboratory Results
10/22/24
06:10
WBC 5.9
Hgb 10.3 L
Hct 30.5 L
Plt Count 264
Sodium 142
Potassium 4.0
Chloride 105
Carbon Dioxide 34 H
BUN 8
Creatinine 0.6
Glucose 110 H
Calcium 8.7
Vital Signs:
Vital Signs
Temp Pulse Resp BP Pulse Ox
97.8 F 54 16 126/67 93
10/22/24 07:00 10/22/24 11:02 10/22/24 07:00 10/22/24 09:00 10/22/24 07:00
I&O
10/21/24 10/22/24 10/23/24
06:59 06:59 06:59
Intake Total 2450 / 2450 960 / 960 1060 / 1060
Balance 2450 / 2450 960 / 960 1060 / 1060
Physical Exam
-
General: No Apparent Distress
HEENT: Normocephalic and Atraumatic
Respiratory: Negative Wheezes
Cardiac: Regular Rhythm and S1/S2
GI: Soft and Nontender
Genito-urinary: No Costovertebral Tender
Musculoskeletal: No Edema
Neuro: AO x 3
Hematologic / Lymphatic: No Lymphadenopathy
Psych: Calm
Data Reviewed
-
Total Time Spent with Patient (in minutes): 42
Labs: Labs Reviewed by me
[2024-10-22 12:45] LABS: Glucose - Point of Care 149 mg/dl (70-99)
[2024-10-22] MEDS: NOVOLOG FLEXPEN-LOW RESISTANCE 1 UNITS SC (14:10)
[2024-10-22 15:00] VITALS: BP 119/59
--- NOTE | 2024-10-22 15:33 | CON.ID ---
Consultation
-
Date/Time Consultation Requested: 10/22/24 8:23
Date/Time Consultation Performed: 10/22/24 15:33
Requesting Provider: Sayra FELIPE
Performing Provider: Dr France
Reason for Consultation: diverticulitis with abscess
Chief Complaint / Past History
Chief Complaint
abdominal pain
History of Present Illness
Ms Enriquez is an 84 year old male with history of breast cancer (chemotherapy on hold until infection is resolved) who presented here 10/22 for abdominal pain which began on thursday and persisted. Pain in the bilateral lower quadrants with nausea no
vomiting. Stools loose. No fevers or chills.
Since arrival here she has been afebrile, bp stable, wbc initially 10 now 5.9 hgb 10.3, plt 264, no L shift, cr 0.6, na 142, crps have been trending and remain >100, 10/18 CT a/p with IV contrast: severe sigmoid diverticulitis with abscess mid sigmoid
colon measuring 3.0 x 3.5 x 3.9 cm, no blood cultures were done patient is currently on zosyn. IR unable to place drain due to location (10/19). Colorectal surgery has commented they can pursue colostomy is she progresses. She is on day 5 of
zosyn, ID is consulted for assistance with management.
Past History
Additional Past Medical History:
breast cancer, Afib on Eliquis, HLD, type 2 DM, hypothyroidism
Additional Past Surgical History:
Appendectomy, Gynecological (Hysterectomy) and Orthopedic)
Allergy History:
codeine Allergy (Verified 10/18/24 12:59)
Rash,Nausea
environmental allergies Allergy (Uncoded 10/18/24 12:59)
throat closes
Medications Reviewed: Yes
Social History
Tobacco: Non-Smoker
Alcohol: None
Drug: None
Family History
Family History: Not Pertinent
Review of Systems
Review of Systems
General: Negative Fever or Chills
All systems: All other systems were reviewed and were negative
Vital Signs
Temp Pulse Resp BP Pulse Ox
97.8 F 54 16 126/67 93
10/22/24 07:00 10/22/24 11:02 10/22/24 07:00 10/22/24 09:00 10/22/24 07:00
Physical Exam
Physical Exam
Constitutional: No Acute Distress
Cardiovascular: Regular Rate and S1/S2; Negative Murmur or Rub
Pulmonary: Clear and Symmetric; Negative Wheezes, Rales or Rhonchi
Gastrointestinal: Soft, Non Tender, Non Distended and Normal Bowel Sounds
Skin: Warm and Dry; Negative Rash or Jaundice
Neurological: Awake
Lab / Diagnostic Study Results
10/22/24 06:10
10/22/24 06:10
Abs Immat Gran (auto) 0.1 10^3/uL (0-0.05) H 10/18/24 13:11
Absolute Neuts (auto) 7.7 10^3/uL (1.4-6.5) H 10/18/24 13:11
Absolute Lymphs (auto) 1.4 10^3/uL (1.2-3.4) 10/18/24 13:11
Absolute Monos (auto) 1.1 10^3/uL (0.1-0.6) H 10/18/24 13:11
Absolute Basos (auto) 0.1 10^3/uL (0-0.2) 10/18/24 13:11
Immature Gran % 0.5 % (0-0.5) 10/18/24 13:11
Neutrophils % 74.4 % (42.2-75.2) 10/18/24 13:11
Lymphocytes % 13.2 % (20.5-51.1) L 10/18/24 13:11
Monocytes % 10.6 % (1.7-9.3) H 10/18/24 13:11
Eosinophils % 0.7 % (0-6) 10/18/24 13:11
Basophils % 0.6 % (0-2) 10/18/24 13:11
C-Reactive Protein 123.70 mg/L (0.0-10.00) H 10/22/24 06:10
Assessment / Plan
Complicated diverticulitis with abscess
Recently diagnosed breast cancer
- given size of abscess (>2 cm) which is not drainable she is at real risk for treatment failure, also note that she had recently diagnosed breast cancer and chemotherapy is currently on hold pending resolution of this infection
- recommend course of IV zosyn - counseled patient that this would be most feasible for her at a facility; she refuses. We discussed potential alternatives and that they would increase the risk of treatment failure but could be selected if that was
her preference. She is definitive that she wants to do whatever she can to avoid surgery.
- home IV antibiotics cannot be set up on the weekends because the infusion companies are not open; I have written the script and provided a copy to the case manger and ordered the PICC line
- if no significant improvement in the inflammatory markers may need to extend the course of IV treatment even beyond the two weeks
- follow up in clinic in 2 weeks.
[2024-10-22] MEDS: ZOSYN 100 IV ×2 (17:16→23:54)
[2024-10-22] MEDS: LOVENOX 40 MG SC (17:17)
[2024-10-22 17:53] LABS: Glucose - Point of Care 121 mg/dl (70-99)
[2024-10-22] MEDS: ULTRAM 50 MG PO (19:44)
[2024-10-22] MEDS: MELATONIN 10 MG PO (21:04)
[2024-10-22] MEDS: NEURONTIN 300 MG PO (21:04)
[2024-10-22] MEDS: PEPCID 40 MG PO (21:04)
[2024-10-22] MEDS: INDERAL LA 80 MG PO (21:05)
[2024-10-22] MEDS: MURO-128/ADSORBONAC 2% EYE DROPS 1 DROP BOTH EYES (21:06)
[2024-10-22] MEDS: XALATAN OPHTHALMIC SOLUTION 1 DROP RIGHT EYE (21:06)
[2024-10-22 22:00] LABS: Glucose - Point of Care 165 mg/dl (70-99)
[2024-10-22 23:46] VITALS: BP 121/61
[2024-10-23] MEDS: DILAUDID 0.5 MG IV ×4 (01:46→23:36)
[2024-10-23] MEDS: ZOSYN 100 IV ×4 (05:41→23:37)
[2024-10-23] MEDS: SYNTHROID 100 MCG PO (05:41)
[2024-10-23 07:00] VITALS: BP 147/62
[2024-10-23 08:33] LABS: Glucose - Point of Care 96 mg/dl (70-99)
[2024-10-23 08:40] LABS: Hematocrit 32.1 % (37.0-47.0); Hemoglobin 10.7 g/dL (12.0-16.0); Mean Corp Hgb Conc. 33.3 g/dL (33.0-37.0); Mean Corpuscular Hgb 29.6 pg (27.0-31.0); Mean Corpuscular Volume 88.9 fL (81.0-99.0); Mean Platelet Volume 9.9 fL (7.4-10.4); Platelet Count 276 10^3/uL (130-400); Red Blood Cell Count 3.61 10^6/uL (4.20-5.40); Red Cell Dist. Width 14.6 % (11.5-14.5); White Blood Cell Count 5.8 10^3/uL (4.8-10.8)
[2024-10-23] MEDS: PACERONE 200 MG PO (08:48)
[2024-10-23] MEDS: NOVOLOG FLEXPEN-LOW RESISTANCE SC ×3 (08:51→16:57)
[2024-10-23 09:16] LABS: Blood Urea Nitrogen 8 mg/dl (7-17); Calcium 8.8 mg/dl (8.4-10.2); Carbon Dioxide 29 mmol/L (22-30); Chloride 105 mmol/L (98-107); Estimated Creatinine Clearance 63 ml/min; Glucose 94 mg/dl (70-99); Potassium 3.7 mmol/L (3.5-5.1); Sodium 141 mmol/L (135-145); eGFR > 60.00
--- NOTE | 2024-10-23 11:23 | W.PN.HOSP.TC ---
Today's Communication/Plan
-
continue IV Abx and continue home infusion setup
follow CRS and ID recs
Assessment / Plan
Assessment / Plan
Assessment:
Acute diverticulitis with abscess
- CT: Severe wall thickening and inflammatory change throughout the proximal to mid sigmoid colon. Adjacent pericolonic abscess along the posteroinferior margin of the mid sigmoid colon measuring 3.0 x 3.5 x 3.9 cm. The bowel is without evidence of
obstruction or perforation. Moderate to severe diffuse colonic stool burden.
- diet: LRD
- supportive care with pain control and anti-emetics
- CRS consulted; recommended IR consult for drainage. d/w IR and no safe path to pursue/place drain. Medical management vs surgery (with ostomy) being discussed. Patient at present refuses surgery and wants to maximize medical therapy.
- IV Zosyn, day 6. ID following for home IV antibiotics. PICC ordered
Recently diagnosed breast cancer
- reported stage 2
- ongoing outpatient diagnostics with PET scans
- follows with [facility]
- Onc consult appreciated
Parox Afib
- continue Eliquis as no procedures planned
- continue Propranolol for rate control
HLD - hold statin
Type 2 DM
- hold Metformin
- SSI
- Accu-checks
- A1c: 6.2%
Hypothyroidism
- continue replacement
DVT ppx: SCDs
Code: Full
Anticipated Discharge: 24 - 48 hours
Subjective/Interval History
-
Date of Service: October 23, 2024
no new complaints
Objective Data
-
Labs:
Laboratory Results
10/23/24
08:12
WBC 5.8
Hgb 10.7 L
Hct 32.1 L
Plt Count 276
Sodium 141
Potassium 3.7
Chloride 105
Carbon Dioxide 29
BUN 8
Creatinine 0.7
Glucose 94
Calcium 8.8
Vital Signs:
Vital Signs
Temp Pulse Resp BP Pulse Ox
97.8 F 47 16 147/62 95
10/23/24 07:00 10/23/24 07:00 10/23/24 07:00 10/23/24 07:00 10/23/24 07:00
I&O
10/22/24 10/23/24 10/24/24
06:59 06:59 06:59
Intake Total 960 / 960 2980 / 2980
Balance 960 / 960 2980 / 2980
Physical Exam
-
General: No Apparent Distress
HEENT: Normocephalic and Atraumatic
Respiratory: Negative Wheezes
Cardiac: Regular Rhythm and S1/S2
GI: Soft and Nontender
Neuro: AO x 3
Psych: Calm
Data Reviewed
-
Total Time Spent with Patient (in minutes): 42
Labs: Labs Reviewed by me
[2024-10-23] MEDS: ELIQUIS 5 MG PO ×2 (11:43→21:24)
--- NOTE | 2024-10-23 12:23 | W.PN.CRS1 ---
Today's Communication / Plan
-
LRD, ABX
Assessment/Plan
-
Assessment: 84-year-old female with a recent diagnosis of breast cancer and atrial fibrillation on Eliquis, presents with 5 days of abdominal pain and found to have sigmoid diverticulitis with an associated sigmoid abscess
AFVSS
No leukocytosis, CRP elevated but now trending down
IR unable to place drain due to location (10/19)
Plan:
- Continue to trend labs and vitals
- Continue low residue
- Continue IV antibiotics. Appreciate ID eval, home IV abx are being arranged upon d/c.
- Hold Eliquis
- Will need an eventual colonoscopy in 6 to 8 weeks once this has resolved
- Colectomy with colostomy creation if she worsens, but does seem to be improving without surgical intervention.
- Reimaging at some point in the future
Subjective Data
Subjective Data
Date of Service: October 23, 2024
Pt seen and examined at bedside with Dr. Mobley. Denies n/v. Passing flatus. Pain about the same but not worsening.
Objective Data
-
Vital Signs
Temp Pulse Resp BP Pulse Ox
97.8 F 47 16 147/62 95
10/23/24 07:00 10/23/24 07:00 10/23/24 07:00 10/23/24 07:00 10/23/24 07:00
Intake & Output
10/22/24 10/23/24 10/24/24
06:59 06:59 06:59
Intake Total 960 / 960 2980 / 2980
Balance 960 / 960 2980 / 2980
Intake:
Oral fluids 960 / 960 2880 / 2880
IV piggybacks 100 / 100
Other:
Number of approximated MODERATE 5 2
amounts of urine
Number of unmeasured liquid
stools
Rectum 1
Lab Results
10/23/24 08:12
10/23/24 08:12
Physical Exam
-
General: No Acute Distress and AOx3
Abdomen: Soft, Non Distended and Tender (Mild left lower quadrant)
Skin: Warm and Dry
[2024-10-23 12:28] LABS: Glucose - Point of Care 128 mg/dl (70-99)
--- NOTE | 2024-10-23 12:34 | CM ---
Patient seen at bedside with daughter Autumn
Script received from Dr. France for Zosyn 4.5gm IVQ6H
Patient refused facility
copy placed in chart
Discussed with patient & daughter - [facility] preferred
Faxed script, facesheet, clinicals to [facility] for benefit check
Left Ann a message
PICC line to be placed
PLAN: home with IV antibiotics
[2024-10-23 15:00] VITALS: BP 156/65
--- NOTE | 2024-10-23 15:14 | W.PN.ID1 ---
Date of Service
Date of Service: October 23, 2024
Today's Communication
PICC placement
awaiting response from outpatient infusion company
family requesting to use a company Im not familiar with - [facility]? - Im happy to work with any company of their choosing, I did mental health counselor that it may take more time to set up with a company that doesnt routinely come to
Assessment / Plan
Complicated diverticulitis with abscess
Recently diagnosed breast cancer
- given size of abscess (>2 cm) which is not drainable she is at real risk for treatment failure, also note that she had recently diagnosed breast cancer and chemotherapy is currently on hold pending resolution of this infection
- recommend course of IV zosyn - counseled patient that this would be most feasible for her at a facility; she refuses. We discussed potential alternatives and that they would increase the risk of treatment failure but could be selected if that was
her preference. She is definitive that she wants to do whatever she can to avoid surgery.
- home IV antibiotics cannot be set up on the weekends because the infusion companies are not open; I have written the script and provided a copy to the case manger and ordered the PICC line
- family requesting to use a company Im not familiar with - [facility]? - Im happy to work with any company of their choosing, I did mental health counselor that it may take more time to set up with a company that doesnt routinely come to
- if no significant improvement in the inflammatory markers may need to extend the course of IV treatment even beyond the two weeks
- repeat CT scan with IV contrast in 2 weeks
- follow up in clinic in 2 weeks.
Chief Complaint
-: Other (intraabdominal abscess)
Subjective / Review of Systems
afebrile
bp stable
some pain with defecation - advised to avoid valsalva and only tighten abs, relax perineum for defecation if possible
Vital Signs / Physical Exam
Vital Signs
Vital Signs
Temp Pulse Resp BP Pulse Ox
97.8 F 47 16 147/62 95
10/23/24 07:00 10/23/24 07:00 10/23/24 07:00 10/23/24 07:00 10/23/24 07:00
Physical Exam
Constitutional: No Acute Distress
Cardiovascular: Regular Rate and S1/S2; Negative Murmur or Rub
Pulmonary: Clear and Symmetric; Negative Wheezes or Rales
Gastrointestinal: Soft, Non Tender, Non Distended and Normal Bowel Sounds
Skin: Warm and Dry; Negative Rash or Jaundice
Lines: PIV
Objective Data
Lab Data
Lab Results
10/23/24 08:12
10/23/24 08:12
Estimated Creat Clear 63 ml/min 10/23/24 08:12
Total Bilirubin 0.7 mg/dl (0.2-1.3) 10/18/24 13:11
AST 31 U/L (14-36) 10/18/24 13:11
ALT 38 U/L (0-35) H 10/18/24 13:11
Alkaline Phosphatase 106 U/L (38-126) 10/18/24 13:11
C-Reactive Protein 123.70 mg/L (0.0-10.00) H 10/22/24 06:10
Most recent labs reviewed.
[2024-10-23 16:50] LABS: Glucose - Point of Care 114 mg/dl (70-99)
[2024-10-23] MEDS: PEPCID 40 MG PO (21:23)
[2024-10-23] MEDS: MELATONIN 10 MG PO (21:23)
[2024-10-23] MEDS: INDERAL LA 80 MG PO (21:24)
[2024-10-23] MEDS: XALATAN OPHTHALMIC SOLUTION 1 DROP RIGHT EYE (21:24)
[2024-10-23] MEDS: NEURONTIN 300 MG PO (21:24)
[2024-10-23] MEDS: MURO-128/ADSORBONAC 2% EYE DROPS BOTH EYES (21:24)
[2024-10-23 21:58] LABS: Glucose - Point of Care 107 mg/dl (70-99)
[2024-10-23 23:24] VITALS: BP 141/58
[2024-10-24] MEDS: DILAUDID 0.5 MG IV (04:12)
[2024-10-24] MEDS: SYNTHROID 100 MCG PO (05:44)
[2024-10-24] MEDS: ZOSYN 100 IV ×3 (05:44→18:00)
[2024-10-24 07:36] VITALS: BP 179/64
[2024-10-24 07:51] LABS: Glucose - Point of Care 103 mg/dl (70-99)
[2024-10-24 08:07] VITALS: BMI 23.5
[2024-10-24] MEDS: NOVOLOG FLEXPEN-LOW RESISTANCE SC ×2 (08:11→16:59)
[2024-10-24] MEDS: ELIQUIS 5 MG PO ×2 (08:23→20:25)
[2024-10-24] MEDS: PACERONE 200 MG PO (08:24)
--- NOTE | 2024-10-24 09:39 | W.PN.HOSP.TC ---
Today's Communication/Plan
-
dc
Assessment / Plan
Assessment / Plan
Physical Exam
-
General: No Apparent Distress
HEENT: Normocephalic and Atraumatic
Respiratory: Negative Wheezes
Cardiac: Regular Rhythm and S1/S2
GI: Soft and Nontender
MSK; + leg edema both sides
Neuro: AO x 3
Psych: Calm
Assessment:
Acute diverticulitis with abscess
- CT: Severe wall thickening and inflammatory change throughout the proximal to mid sigmoid colon. Adjacent pericolonic abscess along the posteroinferior margin of the mid sigmoid colon measuring 3.0 x 3.5 x 3.9 cm. The bowel is without evidence of
obstruction or perforation. Moderate to severe diffuse colonic stool burden.
- diet: LRD
- supportive care with pain control and anti-emetics
- CRS consulted; recommended IR consult for drainage. d/w IR and no safe path to pursue/place drain. Medical management vs surgery (with ostomy) being discussed. Patient at present refuses surgery and wants to maximize medical therapy.
- IV Zosyn, day 6. ID following for home IV antibiotics. PICC ordered
Recently diagnosed breast cancer
- reported stage 2
- ongoing outpatient diagnostics with PET scans
- follows with [facility]
- Onc consult appreciated
Parox Afib
- continue Eliquis as no procedures planned
- continue Propranolol for rate control
Volume overload
No known heart failure
she has gained weight andn both legs with pitting edema. I discussed with patient twice today regarding volume overload and use of salt. Patient reported that her current diet was not consistent with her usual diet at home. She did not want to
take extra medications as Lasix. She will follow-up with her primary care doctor if she continues to have leg edema. Advised to cut back on the fluid/salt intake and elevate both legs for now. She does not have shortness of breath/chest pain at
present time.
HLD - hold statin
Type 2 DM
- hold Metformin
- SSI
- Accu-checks
- A1c: 6.2%
Hypothyroidism
- continue replacement
DVT ppx: SCDs
Code: Full
Total discharge time spent to see the patient, examine the patient, review data and lab results, discuss discharge plan with patient and nursing staff around 65 minutes
Anticipated Discharge: Today
Subjective/Interval History
-
Date of Service: October 24, 2024
No abdominal pain
Passing gas
No nausea
No chest pain
No sob
No fevers
Wants to go home
Objective Data
-
Labs:
Laboratory Results
10/24/24
06:00
WBC Pending
Hgb Pending
Hct Pending
Plt Count Pending
Sodium Pending
Potassium Pending
Chloride Pending
Carbon Dioxide Pending
BUN Pending
Creatinine Pending
Glucose Pending
Calcium Pending
Vital Signs:
Vital Signs
Temp Pulse Resp BP Pulse Ox
97.7 F 45 18 179/64 97
10/24/24 07:36 10/24/24 08:24 10/24/24 07:36 10/24/24 08:24 10/24/24 07:36
I&O
10/23/24 10/24/24 10/25/24
06:59 06:59 06:59
Intake Total 2980 / 2980 1919
Balance 2980 / 2980 1919
[2024-10-24 11:10] LABS: Hematocrit 32.9 % (37.0-47.0); Mean Corp Hgb Conc. 33.4 g/dL (33.0-37.0); Mean Corpuscular Volume 89.6 fL (81.0-99.0); Mean Platelet Volume 9.8 fL (7.4-10.4); Platelet Count 310 10^3/uL (130-400); Red Blood Cell Count 3.67 10^6/uL (4.20-5.40); Red Cell Dist. Width 14.6 % (11.5-14.5); White Blood Cell Count 7.7 10^3/uL (4.8-10.8)
[2024-10-24 11:46] LABS: Glucose - Point of Care 152 mg/dl (70-99)
[2024-10-24 11:49] LABS: Blood Urea Nitrogen 9 mg/dl (7-17); Calcium 8.9 mg/dl (8.4-10.2); Carbon Dioxide 27 mmol/L (22-30); Chloride 103 mmol/L (98-107); Estimated Creatinine Clearance 63 ml/min; Glucose 162 mg/dl (70-99); Potassium 3.9 mmol/L (3.5-5.1); Sodium 140 mmol/L (135-145); eGFR > 60.00
[2024-10-24] MEDS: PERCOCET 5/325 1 TABLET PO ×2 (12:16→20:25)
[2024-10-24] MEDS: NOVOLOG FLEXPEN-LOW RESISTANCE 1 UNITS SC (14:11)
--- NOTE | 2024-10-24 14:58 | CM ---
JASSON spoke with Nico at [facility]. Teaching to be done today by [facility] with anticipation of discharge home later today. Called [facility] to confirm they had received referral; per Katy, since pt has Medicare insurance and is (I), [facility] will take
care of pt's infusion needs; no secondary agency needed for skilled care.
JASSON met with patient to discuss discharge plans and anticipation of [facility] starting teaching this afternoon. She is aware that medication will be delivered to her home.
Plan: Discharge to home with [facility] for IV infusion; no other identified needs at this time. Pt's daughter will provide transportation home.
IMM reveiwed and signed by pt; placed on chart.
[2024-10-24 15:41] VITALS: BP 151/70
[2024-10-24 16:52] LABS: Glucose - Point of Care 103 mg/dl (70-99)
[2024-10-24 21:46] LABS: Glucose - Point of Care 165 mg/dl (70-99)
--- NOTE | 2024-10-24 22:02 | W.PN.CRS1 ---
Today's Communication / Plan
-
As below
Assessment/Plan
-
84-year-old female with PMH of breast cancer (recently diagnosed, was recommended to undergo neoadjuvant chemotherapy followed by lumpectomy; she is awaiting port placement and final plan for chemo), A-fib (on Eliquis, last dose a.m. of 10/18), HLD,
DM, hypothyroidism who presents with 4 to 5 days of abdominal pain, no N/V, hematochezia or change in bowel habits; she has never had a colonoscopy; WBC 10.3, CT scan showing acute sigmoid diverticulitis associated with a 4 x 3.5 cm pericolonic
abscess, no free air
AFVSS
WBC 7.7, CRP 43.9 from 123.7
� Acute diverticulitis with 4 cm abscess
� Cont non-op measures, exam now non-tender
� Discussed with IR, abscess is not accessible
� Cont regular
� Appreciate ID; continue with IV Zosyn; agree with [address] to assess for abscess resolution
� Pain control; recommend restarting home regiment for chronic pain
� OOB/IS
� Appreciate hospitalist
Dispo�okay for discharge once home IV abx set up; colorectal will sign off; please call for questions or concerns
Subjective Data
Subjective Data
Date of Service: October 24, 2024, patient seen this AM
Denies any N/V, tolerating diet. Pain is improving and now more intermittent.
Patient does not like Tylenol, states it does nothing for her. Patient does not like NSAIDs due to side effects of upper GI injury.
Objective Data
-
Vital Signs
Temp Pulse Resp BP Pulse Ox
97.9 F 53 16 151/70 96
10/24/24 15:41 10/24/24 15:41 10/24/24 15:41 10/24/24 15:41 10/24/24 15:41
Intake & Output
10/23/24 10/24/24 10/25/24
06:59 06:59 06:59
Intake Total 2980 / 2980 1919 430 / 430
Balance 2980 / 2980 1919 430 / 430
Intake:
Oral fluids 2880 / 2880 1919 430 / 430
IV piggybacks 100 / 100
Other:
Number of approximated MODERATE 2 4
amounts of urine
Number of approximated LARGE 4
amounts of urine
Lab Results
10/24/24 10:16
10/24/24 10:16
Physical Exam
-
General: No Acute Distress and AOx3
HEENT: Grossly Normal
Abdomen: Soft, Non Distended, Non Tender, No Guarding and No Rebound
Skin: Warm and Dry
[2024-10-24] MEDS: NEURONTIN 300 MG PO (22:11)
[2024-10-24] MEDS: PEPCID 40 MG PO (22:11)
[2024-10-24] MEDS: MELATONIN 10 MG PO (22:12)
[2024-10-24] MEDS: MURO-128/ADSORBONAC 2% EYE DROPS BOTH EYES (22:14)
[2024-10-24] MEDS: INDERAL LA 80 MG PO (22:15)
[2024-10-24] MEDS: XALATAN OPHTHALMIC SOLUTION RIGHT EYE (22:15)
[2024-10-24 23:00] VITALS: BP 128/64
[2024-10-25] MEDS: ZOSYN 100 IV ×3 (00:15→12:03)
[2024-10-25] MEDS: PERCOCET 5/325 1 TABLET PO ×2 (00:54→08:34)
[2024-10-25] MEDS: SYNTHROID 100 MCG PO (05:09)
[2024-10-25 06:17] LABS: Hematocrit 30.1 % (37.0-47.0); Hemoglobin 10.1 g/dL (12.0-16.0); Mean Corp Hgb Conc. 33.6 g/dL (33.0-37.0); Mean Corpuscular Volume 89.3 fL (81.0-99.0); Mean Platelet Volume 9.8 fL (7.4-10.4); Platelet Count 252 10^3/uL (130-400); Red Blood Cell Count 3.37 10^6/uL (4.20-5.40); Red Cell Dist. Width 14.6 % (11.5-14.5); White Blood Cell Count 6.4 10^3/uL (4.8-10.8)
[2024-10-25 06:33] LABS: Blood Urea Nitrogen 8 mg/dl (7-17); Calcium 8.7 mg/dl (8.4-10.2); Carbon Dioxide 28 mmol/L (22-30); Chloride 105 mmol/L (98-107); Estimated Creatinine Clearance 63 ml/min; Glucose 98 mg/dl (70-99); Potassium 3.7 mmol/L (3.5-5.1); Sodium 142 mmol/L (135-145); eGFR > 60.00
[2024-10-25 07:25] VITALS: BP 131/59
[2024-10-25] MEDS: ELIQUIS 5 MG PO (08:34)
[2024-10-25] MEDS: PACERONE 200 MG PO (08:35)
[2024-10-25 08:42] LABS: Glucose - Point of Care 93 mg/dl (70-99)
[2024-10-25] MEDS: NOVOLOG FLEXPEN-LOW RESISTANCE SC (08:43)
--- NOTE | 2024-10-25 09:04 | W.PN.HOSP.TC ---
Today's Communication/Plan
-
dc
Assessment / Plan
Assessment / Plan
Physical Exam
-
General: No Apparent Distress
HEENT: Normocephalic and Atraumatic
Respiratory: Negative Wheezes
Cardiac: Regular Rhythm and S1/S2
GI: Soft and Nontender
MSK; + leg edema both sides
Neuro: AO x 3
Psych: Calm
Assessment:
Acute diverticulitis with abscess
- CT: Severe wall thickening and inflammatory change throughout the proximal to mid sigmoid colon. Adjacent pericolonic abscess along the posteroinferior margin of the mid sigmoid colon measuring 3.0 x 3.5 x 3.9 cm. The bowel is without evidence of
obstruction or perforation. Moderate to severe diffuse colonic stool burden.
- diet: LRD
- supportive care with pain control and anti-emetics
- CRS consulted; recommended IR consult for drainage. d/w IR and no safe path to pursue/place drain. Medical management vs surgery (with ostomy) being discussed. Patient at present refuses surgery and wants to maximize medical therapy.
- IV Zosyn, day 6. ID following for home IV antibiotics. PICC ordered
Recently diagnosed breast cancer
- reported stage 2
- ongoing outpatient diagnostics with PET scans
- follows with [facility]
- Onc consult appreciated
Parox Afib
- continue Eliquis as no procedures planned
- continue Propranolol for rate control
Volume overload
No known heart failure
she has gained weight andn both legs with pitting edema. I discussed with patient twice today regarding volume overload and use of salt. Patient reported that her current diet was not consistent with her usual diet at home. She did not want to
take extra medications as Lasix. She will follow-up with her primary care doctor if she continues to have leg edema. Advised to cut back on the fluid/salt intake and elevate both legs for now. She does not have shortness of breath/chest pain at
present time.
HLD - hold statin
Type 2 DM
- hold Metformin
- SSI
- Accu-checks
- A1c: 6.2%
Hypothyroidism
- continue replacement
DVT ppx: SCDs
Code: Full
Total discharge time spent to see the patient, examine the patient, review data and lab results, discuss discharge plan with patient and nursing staff around 65 minutes
Anticipated Discharge: Today
Subjective/Interval History
-
Date of Service: October 25, 2024
Patient denies abdominal pain
Objective Data
-
Labs:
Laboratory Results
10/25/24
05:56
WBC 6.4
Hgb 10.1 L
Hct 30.1 L
Plt Count 252
Sodium 142
Potassium 3.7
Chloride 105
Carbon Dioxide 28
BUN 8
Creatinine 0.7
Glucose 98
Calcium 8.7
Vital Signs:
Vital Signs
Temp Pulse Resp BP Pulse Ox
97.9 F 44 16 131/59 97
10/25/24 07:25 10/25/24 08:35 10/25/24 07:25 10/25/24 08:35 10/25/24 07:25
I&O
10/24/24 10/25/24 10/26/24
06:59 06:59 06:59
Intake Total 1919 430 / 430 480 / 480
Balance 1919 430 / 430 480 / 480
--- NOTE | 2024-10-25 11:13 | W.PN.ID1 ---
Date of Service
Date of Service: October 25, 2024
Today's Communication
- follow up in clinic in 2 weeks.
Assessment / Plan
Complicated diverticulitis with abscess
Recently diagnosed breast cancer
- given size of abscess (>2 cm) which is not drainable she is at real risk for treatment failure, also note that she had recently diagnosed breast cancer and chemotherapy is currently on hold pending resolution of this infection
- recommend course of IV zosyn - counseled patient that this would be most feasible for her at a facility; she refuses. We discussed potential alternatives and that they would increase the risk of treatment failure but could be selected if that was
her preference. She is definitive that she wants to do whatever she can to avoid surgery.
- home IV antibiotics cannot be set up on the weekends because the infusion companies are not open; I have written the script and provided a copy to the case manger and ordered the PICC line
- family requesting to use a company Im not familiar with - [facility]? - Im happy to work with any company of their choosing, I did budget counselor that it may take more time to set up with a company that doesnt routinely come to
- if no significant improvement in the inflammatory markers may need to extend the course of IV treatment even beyond the two weeks
- repeat CT scan with IV contrast in 2 weeks
- follow up in clinic in 2 weeks.
Chief Complaint
-: Other (intraabdominal abscess)
Subjective / Review of Systems
afebrile
bp stable
tolerating current therapies
Vital Signs / Physical Exam
Vital Signs
Vital Signs
Temp Pulse Resp BP Pulse Ox
97.9 F 44 16 131/59 97
10/25/24 07:25 10/25/24 08:35 10/25/24 07:25 10/25/24 08:35 10/25/24 07:25
Physical Exam
Constitutional: No Acute Distress
Cardiovascular: Regular Rate and S1/S2; Negative Murmur or Rub
Pulmonary: Clear and Symmetric; Negative Wheezes or Rales
Gastrointestinal: Soft, Non Tender, Non Distended and Normal Bowel Sounds
Skin: Warm and Dry; Negative Rash or Jaundice
Lines: PICC
Objective Data
Lab Data
Lab Results
10/25/24 05:56
10/25/24 05:56
Estimated Creat Clear 63 ml/min 10/25/24 05:56
Total Bilirubin 0.7 mg/dl (0.2-1.3) 10/18/24 13:11
AST 31 U/L (14-36) 10/18/24 13:11
ALT 38 U/L (0-35) H 10/18/24 13:11
Alkaline Phosphatase 106 U/L (38-126) 10/18/24 13:11
C-Reactive Protein 43.90 mg/L (0.0-10.00) H 10/24/24 10:16
Most recent labs reviewed.
[2024-10-25 11:43] VITALS: BP 144/48
[2024-10-25 12:00] LABS: Glucose - Point of Care 150 mg/dl (70-99)
[2024-10-25] MEDS: NOVOLOG FLEXPEN-LOW RESISTANCE 1 UNITS SC (12:03)
--- NOTE | 2024-10-25 12:38 | CM ---
Pt still hospitalized due to delay in IV abx late in the day yesterday. Pt was not happy with the teaching provided, so in addition to medication delay, pt discharge held due to concern for pt's ability to understand the administration without
additional teaching.
[facility] to visit again today to provide an easier mechanism for IV abx, using a medication ball. Additional education to be provided.
CM spoke with pt's daughter who will come to the hospital today to be present for teaching.
Plan: CM to continue to follow with plan for discharge to home with IV abx via [facility] and coordination with [facility] agency to provide additional assistance as needed.
[2024-10-25 15:01] VITALS: BP 131/66
== END 2024-10-25 15:13 | disposition home or self-care (01) | DRG 391 ==
LOC: 3 WEST ACU 18:30
PROVIDERS: Emergency Medicine; Radiology Neuroradiology; ADMITTING PHYSICIAN Internal Medicine; ATTENDING PHYSICIAN Internal Medicine; CONSULT PHYSICIAN Student in an Organized Health Care Education/Training Program; EMERGENCY PHYSICIAN Emergency Medicine; FAMILY PHYSICIAN Family Medicine; OTHER PHYSICIAN Internal Medicine Hematology & Oncology; OTHER PHYSICIAN Surgery
PROC: 02HV33Z Insertion of Infusion Device into Superior Vena Cava, Percutaneous Approach (ICD-10-PCS; 2024-10-23)
DX: K57.20 Diverticulitis of large intestine with perforation and abscess without bleeding (principal); K65.1 Peritoneal abscess; E03.9 Hypothyroidism, unspecified; I48.0 Paroxysmal atrial fibrillation; E11.649 Type 2 diabetes mellitus with hypoglycemia without coma; C50.919 Malignant neoplasm of unspecified site of unspecified female breast; E78.00 Pure hypercholesterolemia, unspecified; E87.70 Fluid overload, unspecified; E87.6 Hypokalemia; Z60.2 Problems related to living alone; Z79.01 Long term (current) use of anticoagulants; Z90.49 Acquired absence of other specified parts of digestive tract; Z90.710 Acquired absence of both cervix and uterus; Z79.84 Long term (current) use of oral hypoglycemic drugs; Z79.890 Hormone replacement therapy; Z88.5 Allergy status to narcotic agent; Z91.02 Food additives allergy status; Z17.31 Human epidermal growth factor receptor 2 positive status
CPT/HCPCS: 71045; 74177; 80048; 80053; 82962; 83036; 83690; 85025; 85027; 86140; 96365; 96375; 96376; 99285; Q9967

== ENCOUNTER → 2024-10-31 11:29 | Outpatient (REF) | payer MEDICARE, SELFPAY ==
[2024-10-31 12:08] LABS: % Basophils 1.5 % (0-2); % Eosinophils 2.2 % (0-6); % Immature Granulocytes 0.3 % (0-0.5); % Lymphocytes 16.8 % (20.5-51.1); % Monocytes 10.3 % (1.7-9.3); % Neutrophils 68.9 % (42.2-75.2); Absolute Basophils 0.1 10^3/uL (0-0.2); Absolute Eosinophils 0.2 10^3/uL (0-0.7); Absolute Lymphocytes 1.3 10^3/uL (1.2-3.4); Absolute Monocytes 0.8 10^3/uL (0.1-0.6); Absolute Neutrophils 5.4 10^3/uL (1.4-6.5); Hematocrit 33.8 % (37.0-47.0); Hemoglobin 11.3 g/dL (12.0-16.0); Mean Corp Hgb Conc. 33.4 g/dL (33.0-37.0); Mean Corpuscular Hgb 30.4 pg (27.0-31.0); Mean Corpuscular Volume 90.9 fL (81.0-99.0); Mean Platelet Volume 10.6 fL (7.4-10.4); Nucleated Red Blood Cells % 0 %; Platelet Count 303 10^3/uL (130-400); Red Blood Cell Count 3.72 10^6/uL (4.20-5.40); White Blood Cell Count 7.8 10^3/uL (4.8-10.8)
[2024-10-31 12:32] LABS: ALT (SGPT) 23 U/L (0-35); AST (SGOT) 24 U/L (14-36); Albumin 3.9 g/dl (3.5-5.0); Alkaline Phosphatase 83 U/L (38-126); Blood Urea Nitrogen 16 mg/dl (7-17); Calcium 9.5 mg/dl (8.4-10.2); Carbon Dioxide 25 mmol/L (22-30); Chloride 107 mmol/L (98-107); Glucose 111 mg/dl (70-99); Potassium 4.4 mmol/L (3.5-5.1); Sodium 142 mmol/L (135-145); Total Bilirubin 0.9 mg/dl (0.2-1.3); Total Protein 6.2 g/dl (6.3-8.2); eGFR > 60.00
[2024-10-31 13:04] LABS: Erythrocyte Sed Rate 10 mm/hour (0-20)
== END ==
LOC: REG 11:29
PROVIDERS: ATTENDING PHYSICIAN Student in an Organized Health Care Education/Training Program
DX: K65.1 Peritoneal abscess (principal)
CPT/HCPCS: 36415; 80053; 85025; 85652; 86140

== ENCOUNTER → 2024-11-11 09:39 | Outpatient (REF) | payer MEDICARE, SELFPAY | LOC: RAD 09:39 | PROVIDERS: ATTENDING PHYSICIAN Student in an Organized Health Care Education/Training Program; FAMILY PHYSICIAN Family Medicine | DX: K65.1 Peritoneal abscess (principal) | CPT/HCPCS: 74177; Q9967 ==

== ENCOUNTER → 2024-12-10 09:03 | Outpatient (REF) | payer MEDICARE, SELFPAY | LOC: RCS 09:03 | PROVIDERS: ATTENDING PHYSICIAN Internal Medicine Hematology & Oncology; FAMILY PHYSICIAN Nurse Practitioner Adult Health | DX: C50.912 Malignant neoplasm of unspecified site of left female breast (principal); Z17.31 Human epidermal growth factor receptor 2 positive status; Z91.89 Other specified personal risk factors, not elsewhere classified | CPT/HCPCS: 93306 ==

== ENCOUNTER → 2024-12-23 09:25 | Outpatient (REF) | payer MEDICARE, SELFPAY ==
[2024-12-23] VITALS (8 sets, daily range): BP systolic 45–172; BP diastolic 63–92
[2024-12-23] MEDS: ANCEF 10 IV (10:39)
== END ==
LOC: RADI 09:25
PROVIDERS: ATTENDING PHYSICIAN Internal Medicine Hematology & Oncology; FAMILY PHYSICIAN Family Medicine
DX: C50.912 Malignant neoplasm of unspecified site of left female breast (principal)
CPT/HCPCS: 36561; 76937; 77001; 99152; 99153; C1788

== ENCOUNTER → 2025-04-19 10:27 | Outpatient (REF) | payer MEDICARE, SELFPAY | LOC: RCS 10:27 | PROVIDERS: ATTENDING PHYSICIAN Nurse Practitioner Adult Health; OTHER PHYSICIAN Nuclear Medicine Nuclear Cardiology; OTHER PHYSICIAN Surgery; REFERRING PHYSICIAN Nurse Practitioner Gerontology | DX: R60.0 Localized edema (principal); I10 Essential (primary) hypertension | CPT/HCPCS: 93306; 93356 ==